=== PATIENT | male | born 1970 | race Caucasian/White ===

== ENCOUNTER 2017-02-13 23:21 | Inpatient (IN) ==
[2017-02-13] MEDS ORDERED: Ketorolac 15 MG/ML VIAL IVP ONE (23:50)
[2017-02-13] MEDS ORDERED: *HR* HYDROmorphone (PF) 1 MG/ML SYRINGE IVP ONE (23:50)
[2017-02-13] MEDS ORDERED: Ondansetron 4 MG/2 ML VIAL IVP ONE (23:51)
[2017-02-13] MEDS ORDERED: 0.9 % Sodium Chloride 500 ML IVC ONE (23:51)
[2017-02-14 00:30] LABS: Bilirubin,Urine Small (Negative); Blood,Urine Large (Negative); Clarity,Urine Cloudy (Clear); Color,Urine Yellow (Yellow); Glucose,Urine (UA) Normal (Normal); Ketones,Urine Trace mg/dL (Negative); Leukocyte Esterase,Urine Moderate (Negative); Nitrite,Urine Negative (Negative); Protein,Urine 100 mg/dL (Neg-Trace); Specific Gravity,Urine > 1.030 (1.010-1.025); Urobilinogen,Urine Normal (Normal)
[2017-02-14 00:32] LABS: Bacteria,Urine None Seen per hpf (None-Few); Hyaline Casts,Urine Moderate per lpf (None-Few); RBC,Urine TNTC per hpf (0-3); Squamous Epithelial Cell,Urine Many per lpf (None-Few); WBC,Urine 50-100 per hpf (0-3)
--- NOTE | 2017-02-14 00:53 | Emergency Department Note ---
Disposition Clinical Impression: Renal calculus, right UTI (urinary tract infection) Qualifiers: Urinary tract infection type: acute cystitis Hematuria presence: with hematuria Qualified Code(s): N30.01 - Acute cystitis with hematuria Disposition: Admitted As Inpatient Condition: Good [facility]: [facility] Care Provider[facility] - Forms: Work/School Release, ED Satisfaction Letter Time of Disposition: 03:58 General Adult HPI - General Chief complaint: ED Abdominal Pain Stated complaint: right abdominal into right flank/hx kidney stones Time Seen by Provider: 02/13/17 23:47 Source: patient Limitations: no limitations Nursing Notes Reviewed: Yes Vital Signs Reviewed: Yes - History of Present Illness HPI Narrative: Two-day history of right flank pain. He does have a history of renal stones. States this feels like that. Denies any hematuria or trouble urinating. States the pain started in his right back radiates down to his right groin. It is sharp in nature. There are no alleviating or provoking factors. Pain Scale: 3 - Related Data Home Medications Medication Instructions Recorded Confirmed Cyclobenzaprine HCl [Amrix] 15 mg PO BID 12/15/15 09/21/16 Meloxicam [Mobic] 7.5 mg PO DAILY 12/15/15 09/21/16 Methadone 10 mg PO QAM 12/15/15 09/21/16 Methadone [Methadone] 5 mg PO HS 12/15/15 09/21/16 Paroxetine HCl [Paroxetine] PO DAILY 09/21/16 Previous Rx's Medication Instructions Recorded Tamsulosin HCl [Flomax] 0.4 mg PO DAILY #15 cap.er.24h 09/21/16 Allergies Allergy/AdvReac Type Severity Reaction Status Date / Time naproxen [From Naprosyn] Allergy Vomiting Verified 02/13/17 23:22 blood thinner Allergy Anaphylaxis Uncoded 02/13/17 23:22 All systems ED: reviewed and negative except as stated. Constitutional: Denies: fever, chills ENT ED: Denies: congestion Cardiovascular: Denies: chest pain, palpitations, syncope Respiratory: Denies: cough, dyspnea, wheezes Gastrointestinal: Reports: abdominal pain (Right groin). Denies: nausea, vomiting, diarrhea, hematemesis, melena, hematochezia Genitourinary: Denies: urgency, dysuria, frequency, hematuria Musculoskeletal: Reports: back pain (Right-sided). Denies: neck pain, joint swelling Integumentary: Denies: rash, abrasion, lesions Neurological: Denies: headache, weakness, numbness, paresthesias Past Medical History - Past Medical History Attestation: Yes The following information was validated with the patient. Medical history: Reports: kidney stones Psychiatric history: Reports: anxiety, depression - Social History Smoking Status: Current every day smoker Smokeless Tobacco Status: No Alcohol use: Reports: occasionally Drug use: Reports: none Physical Exam - General Limitations: no limitations General appearance: alert, in no apparent distress - Head Head exam: atraumatic, normocephalic, normal inspection - Eye Eye exam: Present: normal appearance, PERRL, EOMI. Absent: scleral icterus - ENT ENT exam: normal exam, normal oropharynx, mucous membranes moist - Neck Neck exam: Present: normal inspection, full ROM, trachea midline. Absent: tenderness, meningismus - Chest Chest inspection: Present: normal inspection, symmetric chest wall rise. Absent : tenderness - Respiratory Respiratory exam: Present: normal lung sounds bilaterally. Absent: respiratory distress - Cardiovascular Cardiovascular exam: Present: regular rate, normal rhythm, normal heart sounds - Abdominal Exam Abdominal exam: Present: soft, Non-Tender, normal bowel sounds. Absent: tenderness, distention, guarding, rebound, rigidity, organomegaly - Extremities Exam Extremities exam: Present: normal inspection, full ROM, normal capillary refill. Absent: tenderness, pedal edema - Back Exam Back exam: Present: normal inspection, full ROM, CVA tenderness (R). Absent: tenderness, CVA tenderness (L) - Neurological Exam Neurological exam: Present: alert, oriented X3 - Psychiatric Psychiatric exam: Present: normal affect, normal mood - Skin Skin exam: Present: warm, dry, intact, normal color. Absent: rash, cyanosis, diaphoresis, erythema Course Course Narrative: Male patient presenting to the emergency department complaining of right-sided flank pain that radiates around to his groin. He states he does have history of kidney stones and this feels like that. She had one episode of this around 5 :00 last night but it was easily resolved. He states today the pain is been getting excruciatingly worse. He is rocking in bed holding his right side. He does appear to be in pain. He states that he feels like it is moving. It started in his back and now is radiating around to his groin. He denies any trouble urinating or hematuria. He denies any fevers. Denies any nausea vomiting or diarrhea. He denies any trauma. He is mentating appropriately however does appear to be in some distress. Due to the pain. His lung sounds are clear heart tones are normal abdomen is soft and nontender. He has excruciating pain with right CVA tenderness. He has full range of motion of all 4 extremities with no edema. We will get a UA on patient. He states that he has had several stones in his past he did have one that was obstructing. We will provide pain medication. - Reevaluation(s) Reevaluation #1: Patient ambulating through the department. He complains that his pain is coming back would like more pain medication. I feels is reasonable. His urinalysis is back and appears as if he may have a urinary tract infection. We will scan patient's abdomen at this time. Time: 01:53 Reevaluation #2: Pt has a UTI, with several right sided uretal stones and one measuring 7mm with obstruction. We will admit Pt for septic stone and begin antibiotics. Time: 03:52 - Consultations Consultation #1: Spoke with Dr Light. He accepted patient states he will see them in the morning. He is requesting we admitted to the hospitalist. Time: 03:46 Consultation #2: Dr Chacon accepted Pt in stable condition. He is requesting a CBC and BMP. I will order these. Time: 03:47 Vital Signs Temperature 98 F 02/13/17 23:22 Pulse Rate 80 02/13/17 23:22 Respiratory Rate 20 02/13/17 23:22 Blood Pressure 151/99 02/13/17 23:22 O2 Sat by Pulse Oximetry 96 02/13/17 23:22 Temperature 98 F 02/13/17 23:22 Pulse Rate 75 02/14/17 02:51 Respiratory Rate 16 02/14/17 02:51 Blood Pressure 158/111 02/14/17 02:51 O2 Sat by Pulse Oximetry 97 02/14/17 02:51 Oxygen Delivery Oxygen Delivery Room Air Medical Decision Making - Medical Records Medical records reviewed: Yes I reviewed the patient's medical records. - Lab Data Lab results reviewed: Yes I reviewed the patient's lab results. Lab Results 02/14/17 Range/Units 00:05 Urine Color Yellow (Yellow) Urine Clarity Cloudy A (Clear) Urine pH 6.0 (5.0-8.0) pH Units Ur Specific [place] > 1.030 H (1.010-1.025) Urine Protein 100 H (Neg-Trace) mg/dL Urine Glucose (UA) Normal (Normal) mg/dL Urine Ketones Trace H (Negative) mg/dL Urine Blood Large H (Negative) Urine Nitrite Negative (Negative) Urine Bilirubin Small H (Negative) Urine Urobilinogen Normal (Normal) mg/dL Ur Leukocyte Esterase Moderate H (Negative) Urine Microscopic RBC TNTC H (0-3) per hpf Urine Microscopic WBC 50-100 H (0-3) per hpf Ur Squamous Epith Cells Many H (None-Few) per lpf Urine Bacteria None Seen (None-Few) per hpf Hyaline Casts Moderate H (None-Few) per lpf Ur Culture Indicated? YES A (NO) - Radiology Data Radiology results reviewed: Yes I reviewed the patient's radiology results. Abdomen/Pelvis CT 02/14/17 01:48 IMPRESSION: Moderate to severe right hydronephrosis and hydroureter with a cluster of obstructing calculi seen in the distal right ureter, measuring up to 7 mm. Additional bilateral renal calculi. No left hydronephrosis. D/ / Logan Gil MD / Logan Gil MD Interpreting Provider: Logan Gil MD Attestation Statement - Attestation Attestation: I examined this patient and my medical decision-making was reviewed with the Resident Physician. I agree with the documented findings, disposition and treatment plan as described except to the extent set forth below. Presentation c/w prior stones. Has passed about 20, has needed one procedure. UA equivocal. CT pending, analgesia provided.
[2017-02-14] MEDS ORDERED: *HR* HYDROmorphone (PF) 1 MG/ML SYRINGE IVP ONE (01:44)
[2017-02-14] MEDS ORDERED: *HR* HYDROmorphone 2 MG/ML SYRINGE IVP STA (02:55)
[2017-02-14] MEDS ORDERED: Naloxone 0.4 MG/ML INJ IVP PRN ×2 (04:20→13:40)
[2017-02-14] MEDS ORDERED: *HR* Morphine 2 MG/ML SYRINGE IVP PRN ×3 (04:20→13:40)
[2017-02-14] MEDS ORDERED: *HR* OxyCODONE Immed Rel 5 MG TABLET PO PRN ×2 (04:20→13:40)
[2017-02-14] MEDS ORDERED: Acetaminophen 325 MG TABLET PO PRN ×2 (04:20→13:40)
[2017-02-14 04:50] LABS: Basophils # 0.1 K/mcL (0.0-0.2); Basophils % 0.5 %; Eosinophils # 0.1 K/mcL (0.0-0.6); Eosinophils % 0.9 %; Hematocrit 46.1 % (37.5-50.1); Immature Granulocytes % 0.5 % (0-4); Lymphocytes # 1.7 K/mcL (0.6-4.6); Lymphocytes % 12.9 %; Mean Corpuscular HGB Conc 32.5 g/dL (31.6-35.5); Mean Corpuscular Hemoglobin 28.7 pg (28.0-33.3); Mean Corpuscular Volume 88.1 fL (83.0-100.0); Mean Platelet Volume 8.8 fL (9.4-12.4); Monocytes # 1.2 K/mcL (0.0-1.3); Monocytes % 9.3 %; Platelet Count 265 K/mcL (140-400); Red Blood Count 5.23 M/mcL (4.19-5.50); Red Cell Distribution Width 13.2 % (11.5-14.5); Segmented Neutrophils % 75.9 %
[2017-02-14 05:03] LABS: BUN/Creatinine Ratio 18 (6-26); Blood Urea Nitrogen 19 mg/dL (8-26); Calcium 10.1 mg/dL (8.6-10.8); Carbon Dioxide 28 mEq/L (19-29); Chloride 104 mEq/L (98-109); Glucose 113 mg/dL (70-99); Osmolality,Calculated 291 (280-300); Potassium 4.2 mEq/L (3.5-4.5); Sodium 139 mEq/L (136-145); eGFR For African Americans > 60 (> 60); eGFR For Non-African Americans > 60 (> 60)
--- NOTE | 2017-02-14 05:57 | Internal Med History&Physical ---
Date of Encounter: 02/14/17 Time of Encounter: 03:00 Assessment and Plan (1) Ureteral stone Current visit: Yes Status: Acute 7mm ureteral stone. - We will give patient hydration, pain medication. - Flomax 0.4 mg by mouth daily. - Urology consult (2) DVT prophylaxis Current visit: Yes Status: Acute EPCD. Patient is allergic to heparin. (3) UTI (urinary tract infection) Current visit: Yes Status: Acute Continue Rocephin IV. Follow-up urine culture. Qualifiers: Urinary tract infection type: acute cystitis Hematuria presence: with hematuria Qualified Code(s): N30.01 - Acute cystitis with hematuria (4) Tobacco abuse Current visit: Yes Status: Acute Smoking cessation education done. Patient said he does not need nicotine patch. (5) Morbid obesity Current visit: Yes Status: Acute Needed lifestyle modification Qualifiers: Obesity type: due to excess calories Qualified Code(s): E66.01 - Morbid ( severe) obesity due to excess calories Internal Medicine - H&P: HPI Chief complaint: Right flank pain Admitted From: Home Plans for Post Hospital Care: Home History of present illness: Mr. Nolen is a 46 year old male with history of kidney stone present to ER for right flank pain for 1 day. Patient said pain started about 4:30 PM yesterday afternoon, located on the right flank, no radiation. Patient has no fever. Patient has nausea, and vomited once. The vomiting is stomach content, no blood. Patient denies dysuria, increased frequency, or any urgent with urination. In emergency room, CT of abdomen shows right sided ureteral stone. Urology was counseled by emergency doctor. Patient was admitted for observation. CODE STATUS was discussed with patient. Full code. Past Med Surg Social Fam HX - Past Medical History Medical history: kidney stones Psychiatric history: anxiety, depression - Social History Smoking Status: Current every day smoker Packs per day: 1 Smokeless Tobacco Status: No Alcohol use: occasionally Drug use: none - Family History Maternal Grandfather Hx Family Cardiac Disorders: No Hx Family Respiratory Disorders: No Hx Family Cancer: Yes (Colon) Hx Family GI Disorders: No Hx Family Genitourinary Disorders: No Hx Family Endocrine Disorder: No Hx Family Musculoskeletal Disorders: No Hx Family Neuromuscular Disorders: No Hx Family Neurologic Disorders: No Hx Family HEENT Disorders: No Hx Family Autoimmune Disorders: No Hx Family Reproductive Disorders: No Hx Family Psychosocial Disorders: Yes (Alzheimers) Hx Family Medical Disorders: No Internal Medicine - H&P: Meds Cyclobenzaprine HCl [Amrix] 15 mg PO BID 12/15/15 [History] Meloxicam [Mobic] 7.5 mg PO DAILY 12/15/15 [History] Methadone 10 mg PO QAM 12/15/15 [History] Methadone [Methadone] 5 mg PO HS 12/15/15 [History] Paroxetine HCl [Paroxetine] 40 mg PO DAILY 09/21/16 [History] Allergies naproxen [From Naprosyn] Allergy (Verified 02/13/17 23:22) Vomiting blood thinner Allergy (Uncoded 02/13/17 23:22) Anaphylaxis All Systems PM: A 10-system review of systems was performed and is negative for pertinent findings except as documented above in the HPI. - Constitutional Vitals: Temp Pulse Resp BP Pulse Ox 98 F 75 16 135/97 97 02/13/17 23:22 02/14/17 02:51 02/14/17 04:15 02/14/17 04:15 02/14/17 02:51 General appearance: Present: A&O X 3, morbidly obese, no acute distress, answers questions appropriately - Head Head exam: Present: atraumatic, normocephalic - Eye Eye exam: Present: PERRL, conjuntiva pink, sclera anicteric Pupils: Present: PERRL - Neck Neck exam general surgery: Present: supple, trachea midline. Absent: lymphadenopathy - Respiratory Respiratory exam: Present: CTAB. Absent: accessory muscle use, rales, rhonchi, wheezes - Cardiovascular Cardiovascular exam: Present: RRR, +S1, +S2. Absent: diastolic murmur, gallop, rubs, systolic murmur - GI/Abdominal GI/Abdominal exam: Present: normal bowel sounds, soft, tenderness (CVAT on right side.), no peritoneal signs. Absent: distended - Extremities Exam Extremities exam: Present: warm, radial pulses palpable and symetrical. Absent : calf tenderness, cyanotic, pedal edema - Neurological Exam Neurological exam: Present: CN II-XII intact, oriented X3, no focal deficits. Absent: pronater drift, facial droop, speech deficit - Skin Skin exam: Present: dry, intact Internal Med - H&P Results - Labs CBC & Chem 7: 02/14/17 04:43 02/14/17 04:43 Labs: Short CBC 02/14/17 Range/Units 04:43 WBC 13.1 H (4.3-11.1) K/mcL Hgb 15.0 (12.9-16.9) g/dL Hct 46.1 (37.5-50.1) % Plt Count 265 (140-400) K/mcL Neutrophils # 10.0 H (1.6-8.9) K/mcL BMP 02/14/17 04:43 Sodium 139 Potassium 4.2 Chloride 104 Carbon Dioxide 28 BUN 19 Creatinine 1.04 Glucose 113 H Calcium 10.1
[2017-02-14] MEDS ORDERED: *HR* Heparin 5,000 UNIT/ML VIAL SQ SCH (06:00)
--- NOTE | 2017-02-14 07:41 | Urology - Consult Note ---
Date of Encounter: 02/14/17 Time of Encounter: 07:39 - Assessment and Plan (1) UTI (urinary tract infection) Current Visit: Yes Status: Acute Assessment and plan: His urine appears to have white and red blood cells, but he doesn't have the appearance of uti with sepsis. He has received antibiotics. We will await the results of the culture. Qualifiers: Urinary tract infection type: acute cystitis Hematuria presence: with hematuria Qualified Code(s): N30.01 - Acute cystitis with hematuria (2) Ureteral stone Current Visit: Yes Status: Acute Assessment and plan: 46 year old man with a history of right ureteral stone. I recommend proceeding with a right ureteroscopy, laser lithotripsy, and stent placement. I informed him of the risks of the surgery which include but are not limited to bleeding, infection, injury to other structures, need for further procedures, stent irritation, incomplete treatment, need for open repair, need for nephrostomy tube, and the risk of anesthesia. He is willing to proceed. Urology CN:HPI Consult date: 02/14/17 Reason for consult Urology: Other (Right ureteral stone) Requesting physician: Christina Chacon History of present illness: 46 year old man presents with right flank pain. The pain has been going on for a couple days. It was severe. He reports having a history of stones and usually passes them. He was seen in the ER and was noted to have concern for infected urine. He was admitted to the hospitalist service. He says his pain is still present. Nausea has improved. He denies any fevers or chills. Past Med Surg Social Fam HX - Past Medical History Medical history: kidney stones Psychiatric history: anxiety, depression - Social History Smoking Status: Current every day smoker Packs per day: 1 Smokeless Tobacco Status: No Alcohol use: occasionally Drug use: none - Family History Maternal Grandfather Hx Family Cardiac Disorders: No Hx Family Respiratory Disorders: No Hx Family Cancer: Yes (Colon) Hx Family GI Disorders: No Hx Family Genitourinary Disorders: No Hx Family Endocrine Disorder: No Hx Family Musculoskeletal Disorders: No Hx Family Neuromuscular Disorders: No Hx Family Neurologic Disorders: No Hx Family HEENT Disorders: No Hx Family Autoimmune Disorders: No Hx Family Reproductive Disorders: No Hx Family Psychosocial Disorders: Yes (Alzheimers) Hx Family Medical Disorders: No Medications and Allergies Cyclobenzaprine HCl [Amrix] 15 mg PO BID 12/15/15 [History] Meloxicam [Mobic] 7.5 mg PO DAILY 12/15/15 [History] Methadone 10 mg PO QAM 12/15/15 [History] Methadone [Methadone] 5 mg PO HS 12/15/15 [History] Paroxetine HCl [Paroxetine] 40 mg PO DAILY 09/21/16 [History] Allergies naproxen [From Naprosyn] Allergy (Verified 02/13/17 23:22) Vomiting blood thinner Allergy (Uncoded 02/13/17 23:22) Anaphylaxis Review of Systems - Constitutional no chills, no fever(s) - EENT Nose, mouth and throat: no dizziness - Cardiovascular no chest pain - Respiratory no dyspnea - Gastrointestinal no nausea, no vomiting - Genitourinary flank pain, no hematuria - Musculoskeletal no back pain - Integumentary no erythema, no rash - Neurological no weakness - Psychiatric no suicidal ideation - Hematologic/Lymphatic no easy bleeding - Allergic/Immunologic no wheezing Exam Initial Vital Signs Temp Pulse Resp BP Pulse Ox 98 F 80 20 151/99 96 02/13/17 23:22 02/13/17 23:22 02/13/17 23:22 02/13/17 23:22 02/13/17 23:22 - General physical appearance Present: well developed, well nourished, no distress - Eyes Absent: icteric - ENT Present: normal nares - Neck Present: trachea midline - Respiratory Present: normal respiratory effort - Cardiovascular Cardiovascular exam IM: RRR - Abdomen Abdomen: Present: soft Urology Results - Labs 02/14/17 04:43 02/14/17 04:43 Abnormal lab results WBC 13.1 K/mcL (4.3-11.1) H 02/14/17 04:43 MPV 8.8 fL (9.4-12.4) L 02/14/17 04:43 Neutrophils # 10.0 K/mcL (1.6-8.9) H 02/14/17 04:43 Glucose 113 mg/dL (70-99) H 02/14/17 04:43 Urine Clarity Cloudy (Clear) A 02/14/17 00:05 Ur Specific [place] > 1.030 (1.010-1.025) H 02/14/17 00:05 Urine Protein 100 mg/dL (Neg-Trace) H 02/14/17 00:05 Urine Ketones Trace mg/dL (Negative) H 02/14/17 00:05 Urine Blood Large (Negative) H 02/14/17 00:05 Urine Bilirubin Small (Negative) H 02/14/17 00:05 Ur Leukocyte Esterase Moderate (Negative) H 02/14/17 00:05 Urine Microscopic RBC TNTC per hpf (0-3) H 02/14/17 00:05 Urine Microscopic WBC 50-100 per hpf (0-3) H 02/14/17 00:05 Ur Squamous Epith Cells Many per lpf (None-Few) H 02/14/17 00:05 Hyaline Casts Moderate per lpf (None-Few) H 02/14/17 00:05 Ur Culture Indicated? YES (NO) A 02/14/17 00:05 Diabetes panel 02/14/17 Range/Units 04:43 Sodium 139 (136-145) mEq/L Potassium 4.2 (3.5-4.5) mEq/L Chloride 104 (98-109) mEq/L Carbon Dioxide 28 (19-29) mEq/L BUN 19 (8-26) mg/dL Creatinine 1.04 (0.72-1.25) mg/dL Glucose 113 H (70-99) mg/dL Calcium 10.1 (8.6-10.8) mg/dL Calcium panel 02/14/17 Range/Units 04:43 Calcium 10.1 (8.6-10.8) mg/dL Pituitary panel 02/14/17 Range/Units 04:43 Sodium 139 (136-145) mEq/L Potassium 4.2 (3.5-4.5) mEq/L Chloride 104 (98-109) mEq/L Carbon Dioxide 28 (19-29) mEq/L BUN 19 (8-26) mg/dL Creatinine 1.04 (0.72-1.25) mg/dL Glucose 113 H (70-99) mg/dL Calcium 10.1 (8.6-10.8) mg/dL Adrenal panel 02/14/17 Range/Units 04:43 Sodium 139 (136-145) mEq/L Potassium 4.2 (3.5-4.5) mEq/L Chloride 104 (98-109) mEq/L Carbon Dioxide 28 (19-29) mEq/L BUN 19 (8-26) mg/dL Creatinine 1.04 (0.72-1.25) mg/dL Glucose 113 H (70-99) mg/dL Calcium 10.1 (8.6-10.8) mg/dL All other labs normal. - Imaging CT scan - abdomen: report reviewed, image reviewed CT scan - pelvis: report reviewed, image reviewed Consult Discharge Plan - Plan [facility]errals: [facility] [Primary Care Provider[facility] -
[2017-02-14] MEDS ORDERED: *HR* Methadone 10 MG TABLET PO SCH (09:00)
[2017-02-14] MEDS ORDERED: *HR* Promethazine 25 MG/ML VIAL IVP PRN ×3 (10:14→13:40)
[2017-02-14] MEDS ORDERED: Ondansetron 4 MG/2 ML VIAL IVP PRN ×2 (10:14→13:40)
--- NOTE | 2017-02-14 12:04 | Anesthesia Evaluation PreOp ---
Date of Encounter: 02/14/17 Time of Encounter: 12:02 - Past History Planned Operation: Right ureteroscopy Cardiac History: Denies any Significant Hx Pulmonary History: Smoker, Pack/yr (1 ppd) HR RECEPTIONIST History: Other (Anxiety/Depression) Other Medical History: Renal (Stones), Other (Morbid obesity) Anesthesia History: Past Anesthesia (Left shoulder, GB, Renal stone), Problems ( Difficult intubation) Alcohol Use: occasionally Drug use: none Medications and Allergies Cyclobenzaprine HCl [Amrix] 15 mg PO BID 12/15/15 [History] Meloxicam [Mobic] 7.5 mg PO DAILY 12/15/15 [History] Methadone 10 mg PO QAM 12/15/15 [History] Methadone [Methadone] 5 mg PO HS 12/15/15 [History] Paroxetine HCl [Paroxetine] 40 mg PO DAILY 09/21/16 [History] Ibuprofen [Motrin] 200 - 400 mg PO Q6HR PRN 02/14/17 [History] Allergies naproxen [From Naprosyn] Allergy (Verified 02/13/17 23:22) Vomiting blood thinner Allergy (Uncoded 02/13/17 23:22) Anaphylaxis - Meds/Allergy Pre-op Review Medications Reviewed: Yes Allergies Reviewed: Yes Beta Blockers on Current Med List: No Anesthesia Results - Labs 02/14/17 04:43 02/14/17 04:43 Anesthesia Exam O2 Sat Height 1.96 m Height 1.93 m Weight 156.518 kg Weight 159.302 kg O2 Sat by Pulse Oximetry 95 O2 Sat by Pulse Oximetry 96 O2 Sat by Pulse Oximetry 96 O2 Sat by Pulse Oximetry 97 O2 Sat by Pulse Oximetry 93 O2 Sat by Pulse Oximetry 97 O2 Sat by Pulse Oximetry 96 Vital Signs Temp Pulse Resp BP Pulse Ox 98 F 80 20 151/99 96 02/13/17 23:22 02/13/17 23:22 02/13/17 23:22 02/13/17 23:22 02/13/17 23:22 Vital Signs/O2 Sat, Most Current Temp Pulse Resp BP Pulse Ox 97.9 F 73 16 133/83 95 02/14/17 11:31 02/14/17 11:31 02/14/17 11:31 02/14/17 11:31 02/14/17 11:31 Height: 6'5'' Weight: 345# NPO (# of Hours): > 8 hrs Pain Scale: 0 Pain Scale Used: Numeric (1 - 10) - HEENT Pupil (Motor): Pupils equal, EOMI Mallampati: II Teeth: Missing, Poor dentition Oral Opening: Greater than 3 - HR RECEPTIONIST LOC: Oriented HR RECEPTIONIST Motor: Normal RUE, Normal LUE, Normal RLE, Normal LLE, Normal Face HR RECEPTIONIST Sensory: Normal: RUE, LUE, RLE, LLE, Face - Cardiac Rhythm: Regular Murmur: None JVD: No Carotid Bruit: No - Pulmonary Breath Sounds: bilateral Clear Respiratory Effort: Symmetrical Anesthesia Assess/Plan ASA Score: 3 Modified [place] Scale for Level of Consciousness: Cooperative, oriented, and tranquil Anesthetic Plan: General Autologous Blood: Yes Monitoring Plan: Standard Monitors Recovery Plan: PACU
[2017-02-14] MEDS ORDERED: *HR* Propofol 200 MG/20 ML VIAL IVP ONE ×3 (12:08→12:55)
[2017-02-14] MEDS ORDERED: *HR* FentaNYL (PF) 100 MCG/2 ML VIAL ONE (12:08)
[2017-02-14] MEDS ORDERED: *HR* Midazolam HCl 2 MG/2 ML VIAL ONE (12:08)
[2017-02-14] MEDS ORDERED: Lidocaine -MPF 2% 2 ML VIAL ONE (12:09)
[2017-02-14] MEDS ORDERED: *HR* Succinylcholine 200 MG/10 ML VIAL IVP ONE (12:29)
[2017-02-14] MEDS ORDERED: Ondansetron 4 MG/2 ML VIAL ONE (12:45)
[2017-02-14] MEDS ORDERED: Dexamethasone 4 MG/ML VIAL ONE (12:45)
[2017-02-14] MEDS ORDERED: Ondansetron 4 MG/2 ML VIAL IVP ONE (12:49)
[2017-02-14] MEDS ORDERED: *HR* HYDROmorphone (PF) 1 MG/ML SYRINGE IVP PRN (12:49)
[2017-02-14] MEDS ORDERED: *HR* Phenylephrine 10 MG/ML VIAL ONE (13:05)
--- NOTE | 2017-02-14 13:17 | Operative Note ---
Date of procedure: 02/14/17 Pre-op diagnosis: Right ureteral stone Post-op diagnosis: same Procedure: Right ureteroscopy, laser lithotripsy, and stent placement. Implants: 6 Portuguese x 26cm JJ stent. Complications: none Anesthesia: JPA Surgeon: Jr Light Estimated blood loss (cc): 1 Specimen: right ureteral stone Condition: stable Disposition: PACU Procedure in Detail: Indications: Mr. Nolen is a 46-year-old gentleman who has a history of right flank pain. A CT scan showed two stones in the distal right ureter. He elected to undergo a right ureteroscopy, laser lithotripsy, and stent placement. He is aware of the risks of the procedure including but not limited to bleeding, infection, injury to other structures, need for further procedures, stent irritation, and the risk of anesthesia. He is willing to proceed. Procedure: After informed consent was obtained the patient was brought back to the operating room and placed in supine position. A time out was performed. General anesthesia was administered and an endotracheal tube was placed. He was then placed in the lithotomy position. He was prepped and draped in the usual sterile fashion. Cystoscopy was performed. The anterior urethra was normal. There was no evidence of bladder tumors. The ureteral orifices were in the normal orthotopic position. The Zip wire was placed in the right ureteral orifice and brought into the kidney under fluoroscopic guidance. The ureter was gently dilated with the 8/10 Portuguese ureteral dilator. I then advanced the semirigid ureteroscope into the ureter. One of the stones was basket extracted. I then inserted the 365 micron fiber. The other stones were broken up using the laser fiber. The stone fragments were basket extracted. A 6 Portuguese by 26cm JJ stent was then placed with good curl seen in the kidney and the bladder. The dangle string left intact. The string was attached to the penis using a Tegaderm. The bladder was drained. The patient was then awakened from general anesthesia and brought to recovery room in good condition. All sponge, needle, and instrument counts were correct.
--- NOTE | 2017-02-14 14:07 | Anesthesia Evaluation Post Op ---
Date of Encounter: 02/14/17 Time of Encounter: 14:06 - Vital Signs Vital Signs: vss - Lungs Lungs: Clear Ascult./Percussion - Airway Airway: Non-obstructed - Cardiovascular Baseline Rhythm - Mental Status Mental Status: Asleep with brisk response to light stimulation - Pain Pain Scale used: Dustin (Faces) - Nausea Vomiting Nausea Vomiting: Not Present - Hydration Hydration: Ice chips - Discharge PostOp Status: Transfer Patient to floor (recommended Sleep Study.)
--- NOTE | 2017-02-14 17:38 | Discharge Summary ---
Date of Encounter: 02/14/17 Time of Encounter: 17:00 - Discharge Diagnosis (1) Ureteral stone Priority: Primary Status: Acute Comments: Status post right ureteroscopy, laser lithotripsy, and stent placement per Dr. Light (2) UTI (urinary tract infection) Priority: Primary Status: Ruled-out Comments: Urine culture negative Qualifiers: Urinary tract infection type: acute cystitis Hematuria presence: with hematuria Qualified Code(s): N30.01 - Acute cystitis with hematuria (3) DVT prophylaxis Priority: Primary Status: Acute Comments: Observation patient (4) Tobacco abuse Priority: Secondary Status: Chronic Comments: Declined counseling (5) Morbid obesity Priority: Secondary Status: Chronic Qualifiers: Obesity type: due to excess calories Qualified Code(s): E66.01 - Morbid ( severe) obesity due to excess calories - Discharge Medications Prescriptions: Tamsulosin [Flomax] 0.4 mg PO HS #30 capsule Home Medications: Cyclobenzaprine HCl [Amrix] 15 mg PO BID 12/15/15 [History] Meloxicam [Mobic] 7.5 mg PO DAILY 12/15/15 [History] Methadone 5 mg PO HS 12/15/15 [History] Methadone 10 mg PO QAM 12/15/15 [History] Paroxetine HCl [Paroxetine] 40 mg PO DAILY 09/21/16 [History] Ibuprofen [Motrin] 200 - 400 mg PO Q6HR PRN 02/14/17 [History] Tamsulosin [Flomax] 0.4 mg PO HS #30 capsule 02/14/17 [Rx] Allergies/Adverse Reactions: Allergies naproxen [From Naprosyn] Allergy (Verified 02/13/17 23:22) Vomiting blood thinner Allergy (Uncoded 02/13/17 23:22) Anaphylaxis Date of admission: 02/14/17 11:53 Primary care physician: PCP [place] Discharging clinician: Maria C Ba Anticipated date of discharge: 02/14/17 - Patient Status Disposition: Home, Self-Care Condition: Good Functional capacity at discharge: independent ambulation Overall status at discharge: patient is back to baseline - Discharge Instructions Follow Up With: [place],PCP [Primary Care Provider] - Jr Light MD [Partnered Physician] - Additional Instructions: Follow-up with primary care provider within one to 2 weeks. Follow up with urology within 1 week - Diet and Activity Activity: increase activity as tolerated Diet: regular diet Hospital course: Mr. Nolen is a 46 year old male with past medical history of kidney stones, anxiety/depression, tobacco abuse, currently on methadone. Patient presented to the emergency department chief complaint of right flank pain 1 day. Pain did not radiate. He was afebrile. He did endorse nausea and vomiting. He denied dysuria, increased frequency, or urgency. Abdominal CT emergency department revealing right-sided obstructed ureteral stone. Urology was brought on board and the patient was admitted to the hospitalist service for further evaluation and management. Urology performed a right ureteroscopy, laser lithotripsy, and stent placement per urologist Dr. Light. The patient tolerated this well. He was also started on Flomax. Throughout this admission, patient declined pain or nausea medication. He was initially started on ceftriaxone for an abnormal urinalysis however urine culture was negative so no antibiotics were indicated. He was discharged home in stable condition with close outpatient follow-up recommended. ITS Impressions Abdomen/Pelvis CT 02/14/17 01:48 IMPRESSION: Moderate to severe right hydronephrosis and hydroureter with a cluster of obstructing calculi seen in the distal right ureter, measuring up to 7 mm. Additional bilateral renal calculi. No left hydronephrosis. D/ / 02/14/2017 07:30:51 Logan Gil MD / yoli Interpreting Provider: Logan Gil MD Fluoroscopy 02/14/17 12:40 IMPRESSION: Intraprocedural fluoroscopic spot images as above. See separate procedure report for more information. D/ / Franki Acosta MD / Franki Acosta MD Interpreting Provider: Franki Acosta MD X-Ray 02/14/17 12:40 IMPRESSION: Intraprocedural fluoroscopic spot images as above. See separate procedure report for more information. D/ / Franki Acosta MD / Franki Acosta MD Interpreting Provider: Franki Acosta MD - Time Spent with Patient Total time spent providing and/or coordinating discharge services: - Constitutional Vitals: Temp Pulse Resp BP Pulse Ox 98.3 F 95 18 129/76 91 02/14/17 16:35 02/14/17 16:35 02/14/17 16:35 02/14/17 16:35 02/14/17 16:35 General appearance: Present: A&O X 3, morbidly obese, pleasant, no acute distress, answers questions appropriately - Head Head exam: Present: atraumatic, normocephalic - Eye Eye exam: Present: PERRL, conjuntiva pink, sclera anicteric Pupils: Present: PERRL - Neck Neck exam general surgery: Present: supple, trachea midline. Absent: lymphadenopathy - Respiratory Respiratory exam: Present: CTAB. Absent: accessory muscle use, rales, respiratory distress, rhonchi, wheezes - Cardiovascular Cardiovascular exam: Present: RRR, +S1, +S2. Absent: diastolic murmur, gallop, rubs, systolic murmur - GI/Abdominal GI/Abdominal exam: Present: normal bowel sounds, soft, no peritoneal signs. Absent: distended, tenderness - Extremities Exam Extremities exam: Present: warm, radial pulses palpable and symetrical. Absent : calf tenderness, cyanotic, pedal edema - Neurological Exam Neurological exam: Present: alert, CN II-XII intact, normal gait, oriented X3, no focal deficits, strengths equal and symetr throughout. Absent: pronater drift, facial droop, speech deficit - Skin Skin exam: Present: dry, intact, normal color, warm
[2017-02-14 18:03] VITALS: BP 113/71
[2017-02-14] MEDS ORDERED: *HR* Methadone 5 MG TABLET PO SCH ×2 (21:00)
[2017-02-15] MEDS ORDERED: *HR* Methadone 10 MG TABLET PO SCH (09:00)
== END 2017-02-14 18:32 | disposition home or self-care (01) | DRG 654 ==
LOC: EMEROO 23:21 → 3BNU 23:21
PROVIDERS: ADMIT Nurse Practitioner Family; ATTEND Nurse Practitioner Family

== ENCOUNTER 2018-07-07 08:13 | Observation (INO) ==
[2018-07-07] MEDS ORDERED: *HR* HYDROmorphone 2 MG/ML SYRINGE IVP STA ×2 (08:32→09:55)
[2018-07-07] MEDS ORDERED: Ondansetron 4 MG/2 ML VIAL IVP STA (08:32)
[2018-07-07] MEDS ORDERED: 0.9 % Sodium Chloride 1,000 ML IVC ONE (08:32)
--- NOTE | 2018-07-07 08:36 | Emergency Department Note ---
Disposition Clinical Impression: Kidney stones Disposition: Admitted As Inpatient Condition: Fair Forms: ED Satisfaction Letter, Work/School Release General Adult HPI - General Chief complaint: ED Abdominal Pain Stated complaint: Kidney stones Time Seen by Provider: 07/07/18 08:25 Source: patient Mode of arrival: ambulatory Limitations: no limitations Nursing Notes Reviewed: Yes Vital Signs Reviewed: Yes - History of Present Illness HPI Narrative: Patient with a history past medical history of significant kidney stones. Patient has seen multiple specialists without insight into cause. Patient gets treated at the [facility]. Patient states he is off most of his medications which she d escribes as being pain related. Patient typically stays home and takes ibuprofen. Pain started yesterday and was bilateral in nature. Patient states today it is right-sided in nature. Described as a sharp stabbing pain that fluctuates in intensity. Nothing makes better or worse. Associated nausea and decreased appetite with hematuria. Nausea without vomiting. No changes to bowel movements. Mild dysuria. No fever. Pain Scale: 10 - Related Data Home Medications Medication Instructions Recorded Confirmed Ibuprofen [Motrin] 600 mg PO QID PRN 02/14/17 12/18/17 Acetaminophen [Tylenol] 500 mg PO Q6HR PRN 12/18/17 12/18/17 Cyclobenzaprine HCl 10 mg PO HS PRN 12/18/17 12/18/17 Paroxetine HCl [Paxil] 20 mg PO DAILY 12/18/17 12/18/17 Previous Rx's Medication Instructions Recorded Tamsulosin [Flomax] 0.4 mg PO DAILY #30 capsule 12/07/17 HYDROcodone/Acet 5/325 mg [Shiner 2 tab PO Q4H PRN 2 Days #12 tablet 12/18/17 5-325 mg] Morphine Immed Rel [Morphine 30 mg PO Q8HR 2 Days #10 tablet 04/05/18 Sulfate] Ondansetron ODT [Zofran ODT] 4 mg SL Q6HR #10 tab.rapdis 04/05/18 Allergies Allergy/AdvReac Type Severity Reaction Status Date / Time Enoxaparin [From Lovenox] Allergy Difficulty Verified 07/07/18 08:24 Breathing heparin Allergy Swelling Verified 07/07/18 08:24 of Lip/Tongue/Throat Warfarin Allergy Difficulty Verified 07/07/18 08:24 Breathing gabapentin AdvReac Agitated Verified 07/07/18 08:24 naproxen [From Naprosyn] AdvReac Vomiting Verified 07/07/18 08:24 All systems ED: reviewed and negative except as stated. Review of Systems: As Per HPI Constitutional: Denies: fever, chills ENT ED: Denies: congestion Cardiovascular: Denies: chest pain, dyspnea on exertion Respiratory: Denies: cough, dyspnea, wheezes Gastrointestinal: Reports: abdominal pain, nausea. Denies: vomiting, diarrhea, constipation Genitourinary: Reports: urgency, dysuria, hematuria. Denies: frequency, testicular pain Musculoskeletal: Reports: back pain Integumentary: Denies: rash, abrasion, lesions Past Medical History - Past Medical History Medical history: Reports: DVT, kidney stones Surgical history: Reports: cholecystectomy, orthopedic, other Psychiatric history: Reports: anxiety, depression - Social History Smoking Status: Current every day smoker Smokeless Tobacco Status: No Alcohol use: Reports: occasionally Drug use: Reports: none Physical Exam General: Patient in moderate discomfort secondary to right flank pain, otherwise nontoxic appearing. Head: Normocephalic Atraumatic Eyes: No jaundice, PERRL ENT: Airway patent, no stridor Neck: Trachea midline, no limited range of motion Chest: Lungs clear to auscultation bilateral Cardiac: Regular rhythm Abdomen: soft, nontender, nondistended; no guarding, rebound, or tenderness to percussion; right-sided CVA tenderness Musculoskeletal: Ambulated to the room without difficulty Skin: No rash, normal skin tone Neuro: Awake alert and answering all questions appropriately; No focal deficit Course Course Narrative: Patient with a history of significant kidney stones. Patient last kidney stone was approximately 2 weeks ago which passed on its own. Patient has not had any recent CAT scans or blood work. Does take a significant amount of ibuprofen at home secondary to chronic pain with kidney stones. The patient has required extraction of stones in the past. Due to the abnormal presentation, bilateral flank pain, which she had not experienced in the past as well as no recent blood work or recent previous imaging, CT scan will be performed. Kidney function will be evaluated. Urinalysis sent for investigation of possible infection. Symptom management. - Reevaluation(s) Reevaluation #1: Patient symptoms did not initially improve with 1 mg of Dilaudid. Another milligram was given. Patient had significant improvement in pain. Reevaluation #2: Patient understands recommendation to stay. Patient is requesting nicotine patch. - Consultations Consultation #1: Discussed with urology. Patient will undergo urologic procedure likely later today. Requests admission to the hospitalist with urology consult. Consultation #2: Discussed with hospitalist, Dr. Laura, patient excepted for admission. Vital Signs Temperature 97.6 F 07/07/18 08:20 Pulse Rate 104 07/07/18 08:20 Respiratory Rate 20 07/07/18 08:20 Blood Pressure 151/99 07/07/18 08:20 O2 Sat by Pulse Oximetry 95 07/07/18 08:20 Temperature 97.6 F 07/07/18 08:27 Pulse Rate 104 07/07/18 08:27 Respiratory Rate 20 07/07/18 08:27 Blood Pressure 151/99 07/07/18 08:27 O2 Sat by Pulse Oximetry 95 07/07/18 08:27 Oxygen Delivery Oxygen Delivery Room Air Medical Decision Making - Medical Records Medical records reviewed: Yes I reviewed the patient's medical records. - Lab Data Lab results reviewed: Yes I reviewed the patient's lab results. Result diagrams: 07/07/18 08:33 Lab Results 07/07/18 07/07/18 Range/Units 08:33 08:34 Sodium 138 (136-145) mEq/L Potassium 4.5 (3.5-5.1) mEq/L Chloride 107 (98-107) mEq/L Carbon Dioxide 25 (23-29) mEq/L BUN 18 (6-20) mg/dL Creatinine 1.10 (0.70-1.30) mg/dL Est GFR ( Amer) > 60 (> 60) Est GFR (Non-Af Amer) > 60 (> 60) BUN/Creatinine Ratio 16 (6-26) Glucose 112 H (70-105) mg/dL Calculated Osmolality 289 (280-300) Calcium 10.9 H (8.6-10.3) mg/dL Urine Color Yellow (Yellow) Urine Clarity Clear (Clear) Urine pH 6.5 (5.0-8.0) pH Units Ur Specific [place] 1.012 (1.010-1.025) Urine Protein 30 H (Neg-Trace) mg/dL Urine Glucose (UA) Normal (Normal) mg/dL Urine Ketones Negative (Negative) mg/dL Urine Blood Large H (Negative) Urine Nitrite Negative (Negative) Urine Bilirubin Negative (Negative) Urine Urobilinogen Normal (Normal) mg/dL Ur Leukocyte Esterase Moderate H (Negative) Urine Microscopic RBC 50-100 H (0-3) per hpf Urine Microscopic WBC 5-15 H (0-3) per hpf Ur Squamous Epith Cells Many H (None-Few) per lpf Urine Bacteria None Seen (None-Few) per hpf Hyaline Casts None Seen (None-Few) per lpf Ur Culture Indicated? NO. A (NO) - Radiology Data Radiology results reviewed: Yes I reviewed the patient's radiology results.
[2018-07-07 08:50] LABS: Bilirubin,Urine Negative (Negative); Blood,Urine Large (Negative); Clarity,Urine Clear (Clear); Color,Urine Yellow (Yellow); Glucose,Urine (UA) Normal (Normal); Ketones,Urine Negative (Negative); Leukocyte Esterase,Urine Moderate (Negative); Nitrite,Urine Negative (Negative); PH,Urine 6.5 pH Units (5.0-8.0); Protein,Urine 30 mg/dL (Neg-Trace); Specific Gravity,Urine 1.012 (1.010-1.025); Urobilinogen,Urine Normal (Normal)
[2018-07-07 08:53] LABS: Bacteria,Urine None Seen per hpf (None-Few); Hyaline Casts,Urine None Seen per lpf (None-Few); RBC,Urine 50-100 per hpf (0-3); Squamous Epithelial Cell,Urine Many per lpf (None-Few)
[2018-07-07 09:07] LABS: Blood Urea Nitrogen 18 mg/dL (6-20); Carbon Dioxide 25 mEq/L (23-29); Chloride 107 mEq/L (98-107); Potassium 4.5 mEq/L (3.5-5.1); Sodium 138 mEq/L (136-145)
[2018-07-07 09:08] LABS: BUN/Creatinine Ratio 16 (6-26); Calcium 10.9 mg/dL (8.6-10.3); Glucose 112 mg/dL (70-105); Osmolality,Calculated 289 (280-300); eGFR For Non-African Americans > 60 (> 60)
[2018-07-07] MEDS ORDERED: Nicotine 21 MG PATCH.TD24 TD SCH (10:45)
[2018-07-07] MEDS ORDERED: Acetaminophen 325 MG TABLET PO PRN ×2 (11:02→16:55)
[2018-07-07] MEDS ORDERED: Naloxone 0.4 MG/ML INJ IVP PRN ×2 (11:02→16:55)
[2018-07-07] MEDS ORDERED: 0.9 % Sodium Chloride w KCl 20 MEQ/1,000 ML MLS IVC SCH (11:15)
--- NOTE | 2018-07-07 11:27 | Internal Med History&Physical ---
Date of Encounter: 07/07/18 Time of Encounter: 01:45 Internal Medicine - H&P: HPI Chief complaint: Abdominal pain History of present illness: Mr. Nolen is a 48 year old male with a history past medical history of significant kidney stones. who presented with sharp stabbing abdominal pain. associated with nausea , decreased appetite , hematuria and dysuria. No fever. e presents to the ER for abdominal pain. CT reveals bilateral obstructing ureteral stones with bilateral hydronephrosis. The patient is admitted for pain control and further evaluation and management. Past Med Surg Social Fam HX - Past Medical History Medical history: DVT, kidney stones Additional medical history: chronic back pain Psychiatric history: anxiety, depression - Past Surgical History Surgical History: cholecystectomy, orthopedic, other Additional surgical history: Back Surgery. Lithotripsy - Social History Smoking Status: Current every day smoker Smokeless Tobacco Status: No Alcohol use: occasionally Drug use: none - Family History Maternal Grandfather Hx Family Cardiac Disorders: No Hx Family Respiratory Disorders: No Hx Family Cancer: Yes (Colon) Hx Family GI Disorders: No Hx Family Endocrine Disorder: No Hx Family Neuromuscular Disorders: No Hx Family Neurologic Disorders: No Hx Family HEENT Disorders: No Hx Family Autoimmune Disorders: No Internal Medicine - H&P: Meds RX: Ibuprofen [Motrin] 600 mg PO QID PRN 02/14/17 [History] Levofloxacin [Levaquin] 500 mg PO QDPC 6 Days #6 tablet 07/08/18 [Rx] RX: Acetaminophen [Tylenol] 650 mg PO Q6HR PRN tablet 07/08/18 [Rx] Allergy/AdvReac Type Severity Reaction Status Date / Time Enoxaparin [From Lovenox] Allergy Difficulty Verified 07/07/18 08:24 Breathing heparin Allergy Swelling Verified 07/07/18 08:24 of Lip/Tongue/Throat Warfarin Allergy Difficulty Verified 07/07/18 08:24 Breathing gabapentin AdvReac Agitated Verified 07/07/18 08:24 naproxen [From Naprosyn] AdvReac Vomiting Verified 07/07/18 08:24 All Systems PM: A 10-system review of systems was performed and is negative for pertinent findings except as documented above in the HPI. - Constitutional Constitutional: no chills, no fever(s), no night sweats - Cardiovascular Cardiovascular ROS IM: no chest pain, no diaphoresis, no dyspnea, no lightheadedness, no palpitations, no syncope - Respiratory Respiratory: no cough, no dyspnea, no wheezing, no excessive phlegm production - Gastrointestinal Gastrointestinal: abdominal pain, nausea, no diarrhea, no hematemesis, no hematochezia, no melena, no vomiting - Neurological Neurological ROS: no confusion, no convulsions, no focal weakness, no numbness, no tingling, no tremor(s) - Constitutional Vitals: Temp Pulse Resp BP Pulse Ox 97.6 F 104 20 151/99 95 07/07/18 08:27 07/07/18 08:27 07/07/18 08:27 07/07/18 08:27 07/07/18 08:27 General appearance: Present: A&O X 3 Exam: awake - Head Head exam: Present: atraumatic, normocephalic - Neck Neck exam general surgery: Present: supple, trachea midline. Absent: lymph adenopathy - Respiratory Respiratory exam: Present: CTAB. Absent: accessory muscle use, rales, rhonchi, wheezes - Cardiovascular Cardiovascular exam: Present: RRR, +S1, +S2. Absent: diastolic murmur, gallop, rubs, systolic murmur - GI/Abdominal GI/Abdominal exam: Present: normal bowel sounds, soft, no peritoneal signs. Absent: distended, tenderness - Extremities Exam Extremities exam: Present: warm, radial pulses palpable and symmetrical. Absent: calf tenderness, cyanotic, pedal edema Internal Med - H&P Results - Labs CBC & Chem 7: 07/07/18 11:55 07/08/18 05:16 Labs: BMP 07/07/18 08:33 Sodium 138 Potassium 4.5 Chloride 107 Carbon Dioxide 25 BUN 18 Creatinine 1.10 Glucose 112 H Calcium 10.9 H Urine 07/07/18 Range/Units 08:34 Urine Color Yellow (Yellow) Urine Clarity Clear (Clear) Urine pH 6.5 (5.0-8.0) pH Units Ur Specific [place] 1.012 (1.010-1.025) Urine Protein 30 H (Neg-Trace) mg/dL Urine Glucose (UA) Normal (Normal) mg/dL - Impressions ITS Impressions Abdomen/Pelvis CT 07/07/18 00:00 IMPRESSION: 1. Bilateral ureteral calculi, as described above, with associated moderate bilateral hydronephrosis. 2. Bilateral nonobstructing nephrolithiasis. 3. Stable small right renal cyst. 4. Stable left adrenal adenoma. 5. Patient status post cholecystectomy. D/ / 07/07/2018 10:33:10 Jr Rabago MD / Radha Sanz Interpreting Provider: Jr Rabago MD - Assessment and plan (1) Renal calculus, bilateral Status: Acute Assessment and plan: Bilateral hydronephrosis secondary to proximal right ureteral calculus and distal left ureteral calculus. Urology consulted. The patient is scheduled for Urgent urinary diversion in setting (2) Bilateral hydronephrosis Status: Acute Assessment and plan: Bilateral hydronephrosis secondary to proximal right ureteral calculus and di stal left ureteral calculus. Urology consulted. The patient is scheduled for Urgent urinary diversion in setting (3) DVT prophylaxis Status: Acute - Time Spent With Patient Total time spent is greater than 50% in coordination of care (as documented) at patient's floor/unit and/or counseling patient:
[2018-07-07 12:11] LABS: Basophils # 0.1 K/mcL (0.0-0.2); Basophils % 0.7 %; Eosinophils # 0.1 K/mcL (0.0-0.6); Eosinophils % 1.2 %; Hematocrit 45.3 % (37.5-50.1); Hemoglobin 14.6 g/dL (12.9-16.9); Immature Granulocytes % 0.7 % (0-4); Lymphocytes # 1.5 K/mcL (0.6-4.6); Lymphocytes % 15.8 %; Mean Corpuscular HGB Conc 32.2 g/dL (31.6-35.5); Mean Corpuscular Hemoglobin 28.9 pg (28.0-33.3); Mean Corpuscular Volume 89.7 fL (83.0-100.0); Monocytes # 0.9 K/mcL (0.0-1.3); Monocytes % 9.9 %; Neutrophils # 6.8 K/mcL (1.6-8.9); Platelet Count 274 K/mcL (140-400); Red Blood Count 5.05 M/mcL (4.19-5.50); Segmented Neutrophils % 71.7 %
[2018-07-07 12:23] LABS: Prothrombin Time 11.6 Seconds (9.4-12.1)
[2018-07-07 12:33] LABS: Chol/HDL Ratio 5.7 (0-4.9)
[2018-07-07] MEDS ORDERED: OXYCODONE Oral CONC 10 MG/0.5 ML ORAL.SYG SL PRN ×2 (12:49→16:55)
[2018-07-07] MEDS ORDERED: 0.9 % Sodium Chloride 1,000 ML IVC SCH (13:00)
--- NOTE | 2018-07-07 13:26 | Urology - Consult Note ---
Date of Encounter: 07/07/18 Time of Encounter: 13:24 - Assessment and Plan (1) Bilateral hydronephrosis Current Visit: Yes Status: Acute Assessment and plan: Bilateral hydronephrosis secondary to proximal right ureteral calculus and distal left ureteral calculus. The patient has multiple additional large stones in the right kidney. Discussed findings and options for management. Plan: Urgent urinary diversion in setting of bilateral ureteral obstruction. (2) Bilateral ureteral calculi Current Visit: Yes Status: Acute Assessment and plan: 17 mm on right and proximal ureter. 11 mm left and mid distal ureter. Additionally sizable stones in right kidney. Additional small stones in left kidney. Discussed findings and options for management. Plan: Urgent bilateral urinary diversion by stent placement in OR today. Holmium laser lithotripsy of left ureteral calculus in OR today. Stage address of right renal and ureteral calculi as outpatient most likely via PCNL (3) Renal calculus, bilateral Current Visit: Yes Status: Acute Assessment and plan: 3 small stones on left which do not require procedural addressed. Multiple large stones on the right which will require surgical dress. Plan: Urgent urinary diversion with address of left ureteral calculus in OR today. Follow-up with Dr. Jarquin, his established urologist, as outpatient for staged address of large stone burden in the right kidney and right proximal ureter Urology CN:HPI Consult date: 07/07/18 Reason for consult Urology: Hydronephrosis (bilateral hydro, bilateral ureteral and renal calculi) History of present illness: Very pleasant 48-year-old gentleman with long-standing history of nephrolithiasis status post multiple spontaneous passages, procedures adm issions. Prior stone analysis revealed brushite stones. Patient has not completed 24-hour urine for metabolic evaluation. He presents to the ER for abdominal pain. CT reveals bilateral obstructing ureteral stones with bilateral hydronephrosis. The patient is admitted for pain control and urologic evaluation and management. Patient is uncomfortable but denies fevers chills. The patient denies exacerbating or remitting factors. The patient has gross hematuria. Patient reports his pain is progressive last several days. Past Med Surg Social Fam HX - Past Medical History Medical history: DVT, kidney stones Additional medical history: chronic back pain Psychiatric history: anxiety, depression - Past Surgical History Surgical History: cholecystectomy, orthopedic, other Additional surgical history: Back Surgery. Lithotripsy - Social History Smoking Status: Current every day smoker Smokeless Tobacco Status: No Alcohol use: occasionally Drug use: none - Family History Maternal Grandfather Hx Family Cardiac Disorders: No Hx Family Respiratory Disorders: No Hx Family Cancer: Yes (Colon) Hx Family GI Disorders: No Hx Family Endocrine Disorder: No Hx Family Neuromuscular Disorders: No Hx Family Neurologic Disorders: No Hx Family HEENT Disorders: No Hx Family Autoimmune Disorders: No Medications and Allergies Ibuprofen [Motrin] 600 mg PO QID PRN 02/14/17 [History] Allergy/AdvReac Type Severity Reaction Status Date / Time Enoxaparin [From Lovenox] Allergy Difficulty Verified 07/07/18 08:24 Breathing heparin Allergy Swelling Verified 07/07/18 08:24 of Lip/Tongue/Throat Warfarin Allergy Difficulty Verified 07/07/18 08:24 Breathing gabapentin AdvReac Agitated Verified 07/07/18 08:24 naproxen [From Naprosyn] AdvReac Vomiting Verified 07/07/18 08:24 Review of Systems - Constitutional no chills, no fever(s) - EENT Nose, mouth and throat: no dizziness, no sore throat - Cardiovascular no chest pain, no dyspnea - Respiratory no cough - Gastrointestinal abdominal pain, no fecal incontinence - Genitourinary no difficulty urinating, no genital pain - Musculoskeletal back pain, no muscle weakness - Integumentary no lesions, no rash - Neurological no confusion, no sensory deficit - Psychiatric no anxiety, no confusion - Hematologic/Lymphatic no lymphadenopathy - Allergic/Immunologic no throat swelling, no wheezing Exam Initial Vital Signs Temp Pulse Resp BP Pulse Ox 97.6 F 104 20 151/99 95 07/07/18 08:20 07/07/18 08:20 07/07/18 08:20 07/07/18 08:20 07/07/18 08:20 - General physical appearance Present: well developed, well nourished, no distress - Eyes Present: normal ocular movement - ENT Present: normal nares, no congestion - Neck Present: trachea midline - Respiratory Present: normal respiratory effort - Cardiovascular Cardiovascular exam IM: RRR - Abdomen Abdomen: Present: soft, tender. Absent: non tender - Integumentary Present: no rash, no growths - Neurologic Present: normal coordination - Musculoskeletal Present: normal gait Urology Results - Labs 07/07/18 11:55 07/07/18 08:33 Abnormal lab results MPV 9.0 fL (9.4-12.4) L 07/07/18 11:55 Glucose 112 mg/dL (70-105) H 07/07/18 08:33 Calcium 10.9 mg/dL (8.6-10.3) H 07/07/18 08:33 Cholesterol 211 mg/dL (< 200) H 07/07/18 11:55 LDL Cholesterol, Calc 148 mg/dL (0-99) H 07/07/18 11:55 HDL Cholesterol 37 mg/dL (40-59) L 07/07/18 11:55 Cholesterol/HDL Ratio 5.7 (0-4.9) H 07/07/18 11:55 Urine Protein 30 mg/dL (Neg-Trace) H 07/07/18 08:34 Urine Blood Large (Negative) H 07/07/18 08:34 Ur Leukocyte Esterase Moderate (Negative) H 07/07/18 08:34 Urine Microscopic RBC 50-100 per hpf (0-3) H 07/07/18 08:34 Urine Microscopic WBC 5-15 per hpf (0-3) H 07/07/18 08:34 Ur Squamous Epith Cells Many per lpf (None-Few) H 07/07/18 08:34 Ur Culture Indicated? NO. (NO) A 07/07/18 08:34 Diabetes panel 07/07/18 07/07/18 Range/Units 08:33 11:55 Sodium 138 (136-145) mEq/L Potassium 4.5 (3.5-5.1) mEq/L Chloride 107 (98-107) mEq/L Carbon Dioxide 25 (23-29) mEq/L BUN 18 (6-20) mg/dL Creatinine 1.10 (0.70-1.30) mg/dL Glucose 112 H (70-105) mg/dL Calcium 10.9 H (8.6-10.3) mg/dL Triglycerides 131 (< 150) mg/dL HDL Cholesterol 37 L (40-59) mg/dL Calcium panel 07/07/18 Range/Units 08:33 Calcium 10.9 H (8.6-10.3) mg/dL Pituitary panel 07/07/18 Range/Units 08:33 Sodium 138 (136-145) mEq/L Potassium 4.5 (3.5-5.1) mEq/L Chloride 107 (98-107) mEq/L Carbon Dioxide 25 (23-29) mEq/L BUN 18 (6-20) mg/dL Creatinine 1.10 (0.70-1.30) mg/dL Glucose 112 H (70-105) mg/dL Calcium 10.9 H (8.6-10.3) mg/dL Adrenal panel 07/07/18 Range/Units 08:33 Sodium 138 (136-145) mEq/L Potassium 4.5 (3.5-5.1) mEq/L Chloride 107 (98-107) mEq/L Carbon Dioxide 25 (23-29) mEq/L BUN 18 (6-20) mg/dL Creatinine 1.10 (0.70-1.30) mg/dL Glucose 112 H (70-105) mg/dL Calcium 10.9 H (8.6-10.3) mg/dL All other labs normal. - Imaging CT scan - abdomen: image reviewed CT scan - pelvis: image reviewed (CT images of abdomen and pelvis reviewed and interpreted independently during consultation today) Consult Discharge Plan - Plan Referrals: [facility] [Primary Care Provider[facility] -
--- NOTE | 2018-07-07 14:30 | Anesthesia Evaluation PreOp ---
Date of Encounter: 07/07/18 Time of Encounter: 14:28 - Past History Planned Operation: cysto, bilateral stents, laser lithotripsy Cardiac History: Denies any Significant Hx Pulmonary History: Smoker, LAM Dx (probable) ADOPTION SOCIAL WORKER History: Other (CLBP, anxiety and depression) Other Medical History: Other (morbid obesity BMI 44, hx DVT) Anesthesia History: No Prior Anesthetic Complications, Past Anesthesia (back sx, sue, litho) Alcohol Use: occasionally Drug use: none Medications and Allergies Ibuprofen [Motrin] 600 mg PO QID PRN 02/14/17 [History] Allergy/AdvReac Type Severity Reaction Status Date / Time Enoxaparin [From Lovenox] Allergy Difficulty Verified 07/07/18 08:24 Breathing heparin Allergy Swelling Verified 07/07/18 08:24 of Lip/Tongue/Throat Warfarin Allergy Difficulty Verified 07/07/18 08:24 Breathing gabapentin AdvReac Agitated Verified 07/07/18 08:24 naproxen [From Naprosyn] AdvReac Vomiting Verified 07/07/18 08:24 - Meds/Allergy Pre-op Review Medications Reviewed: Yes Allergies Reviewed: Yes Beta Blockers on Current Med List: No Anesthesia Results - Labs 07/07/18 11:55 07/07/18 08:33 Anesthesia Exam Selected Entries 07/07/18 11:37 Temperature 98.0 F Pulse Rate 87 Respiratory Rate 16 Blood Pressure 148/83 O2 Sat by Pulse Oximetry 92 Oxygen Delivery Method Room Air Weight: 169kg BMI 44 NPO (# of Hours): 8 - HEENT Pupil (Motor): EOMI Mallampati: II Teeth: Missing (lower), Edentulous (upp[er) Oral Opening: Less than or equal to 3 - AD[employer]ION SOCIAL WORKER LOC: Oriented AD[employer]ION SOCIAL WORKER Motor: Normal RUE, Normal LUE, Normal RLE, Normal LLE, Normal Face [employer] Sensory: Normal: RUE, LUE, RLE, LLE, Face - Cardiac Rhythm: Regular Murmur: None - Pulmonary Breath Sounds: bilateral Clear Respiratory Effort: Symmetrical Anesthesia Assess/Plan ASA Score: 3 Modified Andre Scale for Level of Consciousness: Cooperative, oriented, and tranquil Anesthetic Plan: General Monitoring Plan: Standard Monitors Recovery Plan: PACU (agrees to GA)
[2018-07-07] MEDS ORDERED: Isovue-300 30 ML VIAL ONE (14:34)
[2018-07-07] MEDS ORDERED: ceFAZolin 2,000 MG in Water for inj. (sterile) 20 ML 20 ML IVP ONE ×2 (14:48→16:55)
[2018-07-07] MEDS ORDERED: *HR* Midazolam HCl 2 MG/2 ML VIAL ONE (14:51)
[2018-07-07] MEDS ORDERED: *HR* FentaNYL (PF) 100 MCG/2 ML VIAL ONE ×2 (14:51→15:07)
[2018-07-07] MEDS ORDERED: Ondansetron 4 MG/2 ML VIAL ONE (14:51)
[2018-07-07] MEDS ORDERED: Dexamethasone 4 MG/ML VIAL ONE (14:51)
[2018-07-07] MEDS ORDERED: Lidocaine -MPF 2% 2 ML VIAL ONE (14:51)
[2018-07-07] MEDS ORDERED: *HR* Propofol 200 MG/20 ML VIAL IVP ONE (14:51)
[2018-07-07] MEDS ORDERED: *HR* Succinylcholine 200 MG/10 ML VIAL IVP ONE (14:57)
[2018-07-07] MEDS ORDERED: Lidocaine -MPF 4% 5 ML AMPUL ONE (15:08)
[2018-07-07] MEDS ORDERED: *HR* PHENYLEPHRINE 1,000 MCG/10 ML SYRINGE IVP ONE ×2 (15:20→15:55)
[2018-07-07] MEDS ORDERED: Isovue-300 150 ML INFUS..BTL ONE (15:27)
[2018-07-07] MEDS ORDERED: Albuterol 2.5 MG/3 ML NEBULIZER IH ONE (15:37)
[2018-07-07] MEDS ORDERED: *HR* HYDROmorphone 2 MG TABLET PO PRN ×2 (15:37→16:55)
[2018-07-07] MEDS ORDERED: Ondansetron 4 MG/2 ML VIAL IVP ONE ×2 (15:37→16:55)
[2018-07-07] MEDS ORDERED: *HR* OxyCODONE Immed Rel 5 MG TABLET PO PRN ×2 (15:37→16:55)
[2018-07-07] MEDS ORDERED: *HR* Promethazine 25 MG/ML VIAL IVP PRN ×2 (15:37→16:55)
[2018-07-07] MEDS ORDERED: MORPHINE SUL Oral CONC 10 MG/0.5 ML ORAL.SYG SL PRN ×2 (15:37→16:55)
[2018-07-07] MEDS ORDERED: Dexamethasone 4 MG/ML VIAL IVP ONE ×2 (15:37→16:55)
--- NOTE | 2018-07-07 16:23 | Operative Note ---
Date of procedure: 07/07/18 Pre-op diagnosis: Bilateral ureteral calculi, bilateral renal calculi, bilateral hydronephros Post-op diagnosis: same Procedure: Cystoscopy, bilateral retrograde ureteropyelogram, left ureteroscopy, holmium laser lithotripsy of left ureteral calculus (complicated), bilateral ureteral JJ stent placement, intraoperative interpretation of all radiographic images by surgeon in real time to facilitate procedure Implants: Bilateral 6 x 28 double-J ureteral stents Complications: Stone impacted in the mid to distal ureter. Unable to access with a rigid scope requiring conversion to flexible ureteroscopy. This extended time of the procedure by 50% Surgeon: Joel Wheat Was there an coding assistant present: No Estimated blood loss (cc): 5 Specimen: none Condition: stable Disposition: PACU Procedure in Detail: The patient was brought to the operating theater identified by name and date of . The patient was administered a general anesthetic. The patient was placed in dorsal lithotomy where he was prepped and draped in a normal sterile fashion. At this point osvaldo inserted into the urethral meatus and advanced toward the bladder under direct visualization. There were no mucosal abnormalities of the urethra or bladder. Using an open-ended catheter a right retrograde ureteral pyelogram was performed this showed obstruction at the level of the proximal ureter with significant hydronephrosis. A Glidewire was adva nced beyond the obstruction into the renal pelvis wire was secured to the drape. At this point using the same open-ended ureteral catheter a left retrograde retropyelogram was performed. This revealed obstruction at the level of the mid to distal ureter and a large filling defect consistent with the stone seen on CT. Proximal to this stone moderate hydroureteronephrosis was appreciated. At this point a Glidewire was advanced beyond the stone into the left renal pelvis. A Glidewire secured to the drape. All cystoscopic x-rays were removed leaving the Glidewire in place. At this point a semirigid ureteroscope was obtained advanced meatus and into the left distal ureter. The ureteroscope was advanced up until the level of the stone. The level stone was narrowed due to impaction. It was at the level of the pelvic brim. Commendation of impaction and stone location, it procedure we are unable to fully access the stone for fragmentation. A 365 holmium laser fiber was passed through the ureteroscope and the stone was partially fragmented, but we are unable to fully fragmented due to impaction and location. At this point the semirigid ureteroscope was removed. An access sheath was advanced over the wire into the distal ureter. Through the access sheath a flexible ureteroscope was obtained the flexible ureteroscope was advanced up to low stone using the flexible scope we had an easier time accessing the stone with the laser fiber. The stone was then fragmented the multiple small pieces which were felt to be of passable size. At this point Allis was removed the patient's bladder except for the Glidewire. Over the existing Glidewire wires and under fluoroscopic guidance bilateral 6 x 28 double-J stents were advanced. Once the stents were felt to be in good position the bladder was removed. Proximal and distal curls of the stent were felt to be in excellent position on fluoroscopy. This ended the operative procedure.
--- NOTE | 2018-07-07 16:47 | Anesthesia Evaluation Post Op ---
Date of Encounter: 07/07/18 Time of Encounter: 16:46 - Vital Signs Vital Signs: Vital Signs/O2 Sat, Most Current Temp Pulse Resp BP Pulse Ox 98 F 87 16 142/91 90 07/07/18 16:15 07/07/18 16:25 07/07/18 16:25 07/07/18 16:25 07/07/18 16:25 - Lungs Lungs: Clear Ascult./Percussion - Airway Airway: Non-obstructed - Cardiovascular Regular Rate - Mental Status Mental Status: Alert & Oriented, Answers Appropriately - Pain Pain Scale: 0 - Nausea Vomiting Nausea Vomiting: Not Present - Hydration Hydration: Tolerates oral liquids, Ramos catheter - Discharge PostOp Status: Transfer Patient to floor
[2018-07-07] MEDS: 0.9 % Sodium Chloride 1,000 ML IVC SCH ×2 (17:00→23:48)
[2018-07-08 05:52] LABS: Alanine Aminotransferase 23 Units/L (7-52); Albumin 3.8 g/dL (3.5-5.7); Albumin/Globulin Ratio 1.4 (1.1-2.2); Alkaline Phosphatase 86 Units/L (34-104); Aspartate Amino Transferase 18 Units/L (13-39); BUN/Creatinine Ratio 21 (6-26); Bilirubin,Total 0.4 mg/dL (0.3-1.0); Blood Urea Nitrogen 21 mg/dL (6-20); Carbon Dioxide 25 mEq/L (23-29); Chloride 107 mEq/L (98-107); Globulin 2.8 g/dL (2.4-3.5); Glucose 177 mg/dL (70-105); Magnesium 1.8 mg/dL (1.6-2.6); Osmolality,Calculated 291 (280-300); Phosphorous 2.5 mg/dL (2.7-4.5); Sodium 137 mEq/L (136-145); Total Protein 6.6 g/dL (6.4-8.9); eGFR For Non-African Americans > 60 (> 60)
[2018-07-08 06:49] VITALS: BP 110/71
--- NOTE | 2018-07-08 08:42 | Discharge Summary ---
Date of Encounter: 07/08/18 Time of Encounter: 08:40 - Discharge Diagnosis (1) Renal calculus, bilateral Priority: Primary Status: Acute (2) Bilateral hydronephrosis Priority: Primary Status: Acute (3) Chronic low back pain without sciatica Priority: Secondary Status: Chronic Qualifiers: Back pain laterality: midline Qualified Code(s): M54.5 - Low back pain; G89.29 - Other chronic pain Hospital course: HOSPITAL COURSE: The patient is a 48-year-old man. He has had long-standing history of recurrent kidney stone disease. We admitted him with a bilateral flank pain secondary to bilateral obstructing ureteral stone/bilateral hydronephrosis. We presented him to urology. They proceeded with cystoscopy, bilateral retrograde ureteropyelogram, laser lithotripsy and bilateral ureteral JJ stent placement. The patient did well during and after the surgery. CONDITION AT DISCHARGE: He feels good. His pain subsided. Denies nausea and vomiting. He has no problems with voiding. His urine is slightly reddish in color. Skin: Free of rash and discoloration. Respiratory: Normal breath sounds with no crackles and wheezes bilaterally. CV: Heart is regular with no gallop or murmur. GI: Abdomen is flat and soft with no palpable mass or visceromegaly. Neuro exam: There is no focal deficits. Normal speech, swallowing and gait. SEE DISCHARGE ORDERS/MEDICATIONS.. Discharge discussed with: patient, family, nurse - Time Spent with Patient Total time spent providing and/or coordinating discharge services: Less than 30 minutes (25 minutes..) - Discharge Medications Prescriptions: Levofloxacin [Levaquin] 500 mg PO QDPC 6 Days #6 tablet Home Medications: Ibuprofen [Motrin] 600 mg PO QID PRN 02/14/17 [History] Acetaminophen [Tylenol] 650 mg PO Q6HR PRN tablet 07/08/18 [Rx] Levofloxacin [Levaquin] 500 mg PO QDPC 6 Days #6 tablet 07/08/18 [Rx] Allergies/Adverse Reactions: Allergy/AdvReac Type Severity Reaction Status Date / Time Enoxaparin [From Lovenox] Allergy Difficulty Verified 07/07/18 08:24 Breathing heparin Allergy Swelling Verified 07/07/18 08:24 of Lip/Tongue/Throat Warfarin Allergy Difficulty Verified 07/07/18 08:24 Breathing gabapentin AdvReac Agitated Verified 07/07/18 08:24 naproxen [From Naprosyn] AdvReac Vomiting Verified 07/07/18 08:24 Date of admission: 07/07/18 10:52 Primary care physician: PCP ERNIE Consults: 07/07/18 10:29 Consult to Urology [CONS] Stat Consulting Provider: Urology Adina Reason for Consult: bilateral obstructing renal calculi Call Completed: Yes Discharging clinician: David Guevara Anticipated date of discharge: 07/08/18 - Constitutional Vitals: Temp Pulse Resp BP Pulse Ox 98.4 F 83 16 110/71 93 07/08/18 06:45 07/08/18 06:45 07/08/18 06:45 07/08/18 06:45 07/08/18 06:45 General appearance: Present: A&O X 3, no acute distress, answers questions appropriately Exam: xx - Patient Status Disposition: Home, Self-Care Condition: Good Functional capacity at discharge: independent ambulation Overall status at discharge: patient is back to baseline - Discharge Instructions Follow Up With: Joel Camacho [Partnered Physician] - (Office will call patient with date and time of appointment. Thank you) [facility],PCP [Primary Care Provider] - Additional Instructions: OFFICE OF DR. CAMACHO (UROLOGY) TO CALL THE PATIENT ABOUT THE APPOINTMENT.. - Diet and Activity Activity: resume usual activities as tolerated Diet: low fat, low cholesterol - VTE Reasons for not Prescribing Prophylaxis: Treatment not Indicated - Low risk for VTE Deep Vein Thrombosis/Pulmonary Embolism Present on Admission: No
[2018-07-08] MEDS ORDERED: Nicotine 21 MG PATCH.TD24 TD SCH (09:00)
[2018-07-08] MEDS ORDERED: Levofloxacin 500 MG/100 ML 500 MG/100 ML BAG IVPB SCH (09:00)
== END 2018-07-08 09:37 | disposition home or self-care (01) ==
LOC: 3ANU 08:13 → EMEROOARM 08:13 → SUATTDRO 10:52 → 3ANU 11:30
PROVIDERS: ADMIT Internal Medicine Nephrology; ATTEND Internal Medicine

== ENCOUNTER 2018-07-22 07:48 | Observation (INO) ==
--- NOTE | 2018-07-22 07:52 | Anesthesia Evaluation PreOp ---
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 Other Medical History: Renal (MASON KIDNEY STONES), Other (MORBID OBESITY, BMI 47, ARTHRITIS) Anesthesia History: No Prior Anesthetic Complications, Past Anesthesia Alcohol Use: occasionally Drug use: none Medications and Allergies Ibuprofen [Motrin] 600 mg PO QID PRN 02/14/17 [History] Acetaminophen [Tylenol] 650 mg PO Q6HR PRN tablet 07/08/18 [Rx] Allergy/AdvReac Type Severity Reaction Status Date / Time Enoxaparin [From Lovenox] Allergy Difficulty Verified 07/07/18 08:24 Breathing heparin Allergy Swelling Verified 07/07/18 08:24 of Lip/Tongue/Throat Warfarin Allergy Difficulty Verified 07/07/18 08:24 Breathing gabapentin AdvReac Agitated Verified 07/07/18 08:24 naproxen [From Naprosyn] AdvReac Vomiting Verified 07/07/18 08:24 - Meds/Allergy Pre-op Review Medications Reviewed: Yes Allergies Reviewed: Yes Anesthesia Results - Labs Laboratory Last Values WBC 9.5 K/mcL (4.3-11.1) 07/07/18 11:55 RBC 5.05 M/mcL (4.19-5.50) 07/07/18 11:55 Hgb 14.6 g/dL (12.9-16.9) 07/07/18 11:55 Hct 45.3 % (37.5-50.1) 07/07/18 11:55 MCV 89.7 fL (83.0-100.0) 07/07/18 11:55 MCH 28.9 pg (28.0-33.3) 07/07/18 11:55 MCHC 32.2 g/dL (31.6-35.5) 07/07/18 11:55 RDW 14.0 % (11.5-14.5) 07/07/18 11:55 Plt Count 274 K/mcL (140-400) 07/07/18 11:55 MPV 9.0 fL (9.4-12.4) L 07/07/18 11:55 Immature Gran % 0.7 % (0-4) 07/07/18 11:55 Seg Neutrophils % 71.7 % 07/07/18 11:55 Lymphocytes % 15.8 % 07/07/18 11:55 Monocytes % 9.9 % 07/07/18 11:55 Eosinophils % 1.2 % 07/07/18 11:55 Basophils % 0.7 % 07/07/18 11:55 Neutrophils # 6.8 K/mcL (1.6-8.9) 07/07/18 11:55 Lymphocytes # 1.5 K/mcL (0.6-4.6) 07/07/18 11:55 Monocytes # 0.9 K/mcL (0.0-1.3) 07/07/18 11:55 Eosinophils # 0.1 K/mcL (0.0-0.6) 07/07/18 11:55 Basophils # 0.1 K/mcL (0.0-0.2) 07/07/18 11:55 PT 11.6 Seconds (9.4-12.1) 07/07/18 11:55 INR 1.0 07/07/18 11:55 Sodium 137 mEq/L (136-145) 07/08/18 05:16 Potassium 4.0 mEq/L (3.5-5.1) 07/08/18 05:16 Chloride 107 mEq/L (98-107) 07/08/18 05:16 Carbon Dioxide 25 mEq/L (23-29) 07/08/18 05:16 BUN 21 mg/dL (6-20) H 07/08/18 05:16 Creatinine 1.02 mg/dL (0.70-1.30) 07/08/18 05:16 Est GFR ( Amer) > 60 (> 60) 07/08/18 05:16 Est GFR (Non-Af Amer) > 60 (> 60) 07/08/18 05:16 BUN/Creatinine Ratio 21 (6-26) 07/08/18 05:16 Glucose 177 mg/dL (70-105) H 07/08/18 05:16 POC Glucose 113 mg/dL (70-99) H 07/07/18 11:36 Calculated Osmolality 291 (280-300) 07/08/18 05:16 Calcium 10.0 mg/dL (8.6-10.3) 07/08/18 05:16 Phosphorus 2.5 mg/dL (2.7-4.5) L 07/08/18 05:16 Magnesium 1.8 mg/dL (1.6-2.6) 07/08/18 05:16 Total Bilirubin 0.4 mg/dL (0.3-1.0) 07/08/18 05:16 AST 18 Units/L (13-39) 07/08/18 05:16 ALT 23 Units/L (7-52) 07/08/18 05:16 Alkaline Phosphatase 86 Units/L (34-104) 07/08/18 05:16 Serum Total Protein 6.6 g/dL (6.4-8.9) 07/08/18 05:16 Albumin 3.8 g/dL (3.5-5.7) 07/08/18 05:16 Globulin 2.8 g/dL (2.4-3.5) 07/08/18 05:16 Albumin/Globulin Ratio 1.4 (1.1-2.2) 07/08/18 05:16 Triglycerides 131 mg/dL (< 150) 07/07/18 11:55 Cholesterol 211 mg/dL (< 200) H 07/07/18 11:55 LDL Cholesterol, Calc 148 mg/dL (0-99) H 07/07/18 11:55 VLDL Cholesterol, Calc 26 mg/dL (< 31) 07/07/18 11:55 HDL Cholesterol 37 mg/dL (40-59) L 07/07/18 11:55 Cholesterol/HDL Ratio 5.7 (0-4.9) H 07/07/18 11:55 Urine Color Yellow (Yellow) 07/07/18 08:34 Urine Clarity Clear (Clear) 07/07/18 08:34 Urine pH 6.5 pH Units (5.0-8.0) 07/07/18 08:34 Ur Specific [place] 1.012 (1.010-1.025) 07/07/18 08:34 Urine Protein 30 mg/dL (Neg-Trace) H 07/07/18 08:34 Urine Glucose (UA) Normal mg/dL (Normal) 07/07/18 08:34 Urine Ketones Negative mg/dL (Negative) 07/07/18 08:34 Urine Blood Large (Negative) H 07/07/18 08:34 Urine Nitrite Negative (Negative) 07/07/18 08:34 Urine Bilirubin Negative (Negative) 07/07/18 08:34 Urine Urobilinogen Normal mg/dL (Normal) 07/07/18 08:34 Ur Leukocyte Esterase Moderate (Negative) H 07/07/18 08:34 Urine Microscopic RBC 50-100 per hpf (0-3) H 07/07/18 08:34 Urine Microscopic WBC 5-15 per hpf (0-3) H 07/07/18 08:34 Ur Squamous Epith Cells Many per lpf (None-Few) H 07/07/18 08:34 Urine Bacteria None Seen per hpf (None-Few) 07/07/18 08:34 Hyaline Casts None Seen per lpf (None-Few) 07/07/18 08:34 Ur Culture Indicated? NO. (NO) A 07/07/18 08:34 Anesthesia Exam O2 Sat Height 1.88 m Weight 166.922 kg NPO (# of Hours): 8 - HEENT Mallampati: II Teeth: Missing Denture Type: Upper: Complete Oral Opening: Greater than 3 - Cardiac Rhythm: Regular - Pulmonary Breath Sounds: bilateral Clear Respiratory Effort: Symmetrical Anesthesia Assess/Plan ASA Score: 3 Anesthetic Plan: General Monitoring Plan: Standard Monitors Recovery Plan: PACU Anes Supervising Prov Stmt: [employer] LIST NOT UPDATED THIS VISIT PATIENT'S CHART AND CURRENT MEDICATIONS REVIEWED PATIENT INFORMED AND CONSENTED. RISKS, BENEFITS, AND ALTERNATIVES DISCUSSED. PATIENT WISHES TO PROCEED.
[2018-07-22] MEDS ORDERED: CeFAZolin Syr 2,000MG/20 ML 2,000 MG/20 ML SYRINGE IVPB ONE (08:10)
[2018-07-22] MEDS ORDERED: CeFAZolin Syr 3,000MG/30 ML 3,000 MG/30 ML SYRINGE IVPB ONE (08:12)
[2018-07-22] MEDS ORDERED: Albuterol 2.5 MG/3 ML NEBULIZER IH ONE (08:13)
[2018-07-22] MEDS: Ringers Solution, Lactated 1,000 ML IVC SCH (08:24)
[2018-07-22] MEDS ORDERED: *HR* Methadone 10 MG TABLET PO ONE ×2 (08:26→08:28)
[2018-07-22] MEDS: *HR* Methadone 10 MG TABLET PO ONE ×2 (08:35)
--- NOTE | 2018-07-22 08:54 | History & Physical Report ---
Date of Encounter: 07/22/18 Time of Encounter: 08:53 24 Hour HP Update - Instructions Instructions: If the History and Physical is less than 30 days old and was completed prior to A.M. admission and or procedure and has NOT been updated on calendar day of procedure please complete this update prior to performing procedure. - Update Patient reports changes in Medical Condition: No Changes in examination, assessment, or condition: No Changes in Medication: No Preop tests/diagnostics Reviewed: Yes Surgery Remains Indicated: Yes Consent for Planned Operative Procedure(s) Verified: Yes - Pre-Operative Checklist Preoperative Checklist Indicated: Yes Prophylactic Antibiotic Ordered: Yes Home Medications Include Beta Aneudy: No Beta Aneudy Taken Today (Day of Surgery): No Beta Aneudy Taken Yesterday (Day Prior to Surgery): No Is VTE Prophylaxis Indicated?: Yes
[2018-07-22] MEDS ORDERED: *HR* Midazolam HCl 2 MG/2 ML VIAL IVP ONE ×2 (09:05→09:51)
[2018-07-22] MEDS ORDERED: *HR* FentaNYL (PF) 100 MCG/2 ML VIAL IVP ONE ×2 (09:05→09:51)
[2018-07-22] MEDS ORDERED: 0.9 % Sodium Chloride 1,000 ML ONE (09:09)
--- NOTE | 2018-07-22 09:40 | History & Physical Report ---
Date of Encounter: 07/22/18 Time of Encounter: 09:39 24 Hour HP Update - Instructions Instructions: If the History and Physical is less than 30 days old and was completed prior to A.M. admission and or procedure and has NOT been updated on calendar day of procedure please complete this update prior to performing procedure. - Update Patient reports changes in Medical Condition: No Changes in examination, assessment, or condition: No Changes in Medication: No Preop tests/diagnostics Reviewed: Yes Pre-Op MRSA Screen: Negative Surgery Remains Indicated: Yes Consent for Planned Operative Procedure(s) Verified: Yes - Pre-Operative Checklist Preoperative Checklist Indicated: Yes Prophylactic Antibiotic Ordered: Yes Home Medications Include Beta Aneudy: No Beta Aneudy Taken Today (Day of Surgery): No Beta Aneudy Taken Yesterday (Day Prior to Surgery): No Is VTE Prophylaxis Indicated?: NO
[2018-07-22] MEDS ORDERED: Isovue-300 50 ML VIAL IVP ONE ×2 (10:17→10:51)
[2018-07-22] MEDS ORDERED: Lidocaine -MPF 4% 5 ML AMPUL ONE (10:30)
[2018-07-22] MEDS ORDERED: Lidocaine -MPF 2% 2 ML VIAL ONE (10:30)
[2018-07-22] MEDS ORDERED: *HR* Rocuronium Bromide 50 MG/5 ML VIAL ONE (10:30)
[2018-07-22] MEDS ORDERED: *HR* Succinylcholine 200 MG/10 ML VIAL IVP ONE ×2 (10:30→12:13)
[2018-07-22] MEDS ORDERED: *HR* Propofol 200 MG/20 ML VIAL IVP ONE ×2 (10:31→11:23)
[2018-07-22] MEDS ORDERED: *HR* FentaNYL (PF) 100 MCG/2 ML VIAL ONE ×2 (10:31→12:13)
[2018-07-22] MEDS ORDERED: *HR* Midazolam HCl 2 MG/2 ML VIAL ONE (10:31)
--- NOTE | 2018-07-22 10:53 | IR Procedure Note ---
Date of procedure: 07/22/18 Consent Obtained: Verbal consent, Written consent Timeout: Correct patient and procedure verified, Correct site verified, Time out performed, Skin prep completed Local anesthetic: Lidocaine 1% Indications: right kidney stones, prior to PCNL Procedure Performed: right nephrostomy Was there an hotel assistant general manager present: No Site/Technique: right kidney Results/Findings: right hydronephrosis, large proximal right ureteral stone obstructing Estimated blood loss (cc): 0 Post Procedure Treatment Plan: to OR Specimen: NA
[2018-07-22] MEDS ORDERED: Isovue-300 30 ML VIAL ONE ×3 (11:08→11:38)
[2018-07-22] MEDS ORDERED: *HR* HYDROmorphone (PF) 1 MG/ML SYRINGE IVP PRN (11:31)
[2018-07-22] MEDS ORDERED: *HR* Meperidine 25 MG/ML SYRINGE IVP PRN (11:31)
[2018-07-22] MEDS ORDERED: *HR* Labetalol 20 MG/4 ML SYRINGE IVP PRN (11:31)
[2018-07-22] MEDS ORDERED: Ondansetron 4 MG/2 ML VIAL IVP ONE (11:31)
[2018-07-22] MEDS ORDERED: *HR* OxyCODONE Immed Rel 5 MG TABLET PO PRN (11:31)
[2018-07-22] MEDS ORDERED: *HR* PHENYLEPHRINE 1,000 MCG/10 ML SYRINGE IVP ONE (12:18)
[2018-07-22] MEDS ORDERED: EPHEDrine 50 MG/ML VIAL ONE (12:24)
[2018-07-22] MEDS ORDERED: Naloxone 0.4 MG/ML INJ IVP PRN (14:21)
[2018-07-22] MEDS ORDERED: Ondansetron 4 MG/2 ML VIAL IVP PRN (14:21)
--- NOTE | 2018-07-22 14:21 | Operative Note ---
Date of procedure: 07/22/18 Pre-op diagnosis: Right renal and ureteral calculi Post-op diagnosis: same Procedure: Right percutaneous nephrolithotomy with intraoperative interpretation of radiographic images (antegrade nephrostogram ) in real time by surgeon to facilitate the procedure. Implants: None Surgeon: Joel Wheat Was there an assistant plant control operator present: No Estimated blood loss (cc): 25 Specimen: right renal and ureteral calculi Condition: stable Disposition: PACU Procedure in Detail: The patient about the operating theater identified by name, date of and administered a general anesthetic. The patient was repositioned in prone prepped and draped in the normal sterile fashion. At this point antegrade nephrostogram was performed which showed access was not in the collecting system. At this point we called interventional radiology performed intraoperative consultation (dictated separately). Interventional radiology performed new access into the mid pole calyx. Through this access sheath wire was placed balloon dilation was performed in the nephroscope was inserted. Significant clusters of small stones were encountered in the renal pelvis and lower pole calyceal system. The stones were fragmented and aspirated with the ultrasound wand. The scope was then advanced into the proximal ureter. Several large stones were encountered here. Broken partially with the ultrasound. The larger pieces were grasped and removed intact. Once the ureter was free of stones the kidney was again inspected. No additional large stones were appreciated. At this point Allis was removed from the right kidney. Reflux of irrigant from the right renal pelvis was marginally bloody thus it was felt there is no need for nephrostomy tube. An existing right double-J stent was already in place. One last antegrade nephrostogram was obtained and interpreted intraoperatively by surgeon. This revealed no filling defects consistent with stones. There is significant extravasation from the lower pole where initial access an attempted repeat access was performed. This ended the operative procedure. A single stitch was placed at the skin incision. The Ramos catheter was removed intraoperatively. There were no operative consultations.
[2018-07-22] MEDS: *HR* Promethazine 25 MG/ML VIAL IVP PRN ×2 (14:49→14:55)
--- NOTE | 2018-07-22 15:15 | Anesthesia Evaluation Post Op ---
Date of Encounter: 07/22/18 Time of Encounter: 15:14 - Vital Signs Vital Signs: Vital Signs/O2 Sat, Most Current Temp Pulse Resp BP Pulse Ox 97.6 F 82 14 125/82 94 07/22/18 15:00 07/22/18 15:00 07/22/18 15:00 07/22/18 15:00 07/22/18 15:00 - Lungs Lungs: Clear Ascult./Percussion - Airway Airway: Non-obstructed - Cardiovascular Regular Rate - Mental Status Mental Status: Alert & Oriented, Answers Appropriately - Pain Pain Scale: 0 Pain Scale used: Numeric (1 - 10) - Nausea Vomiting Nausea Vomiting: Not Present - Hydration Hydration: Tolerates oral liquids, Has not voided - Discharge PostOp Status: Transfer Patient to floor
[2018-07-22] MEDS: 0.9 % Sodium Chloride 1,000 ML IVC SCH (16:10)
[2018-07-22] MEDS ORDERED: *HR* OxyCODONE/APAP 5/325 TABLET PO PRN ×2 (19:17)
[2018-07-22] MEDS: Ketorolac 30 MG/ML VIAL IVP PRN (19:58)
[2018-07-23] MEDS: Ketorolac 30 MG/ML VIAL IVP PRN (01:59)
[2018-07-23 06:15] LABS: Basophils % 0.2 %; Eosinophils % 0.1 %; Hematocrit 42.6 % (37.5-50.1); Hemoglobin 13.4 g/dL (12.9-16.9); Immature Granulocytes % 0.6 % (0-4); Lymphocytes # 1.1 K/mcL (0.6-4.6); Lymphocytes % 7.5 %; Mean Corpuscular HGB Conc 31.5 g/dL (31.6-35.5); Mean Corpuscular Hemoglobin 28.2 pg (28.0-33.3); Mean Corpuscular Volume 89.5 fL (83.0-100.0); Mean Platelet Volume 9.2 fL (9.4-12.4); Monocytes # 0.8 K/mcL (0.0-1.3); Monocytes % 5.5 %; Neutrophils # 12.7 K/mcL (1.6-8.9); Platelet Count 327 K/mcL (140-400); Red Blood Count 4.76 M/mcL (4.19-5.50); Red Cell Distribution Width 13.5 % (11.5-14.5); Segmented Neutrophils % 86.1 %
[2018-07-23 06:21] LABS: Prothrombin Time 10.7 Seconds (9.4-12.1)
[2018-07-23] MEDS: 0.9 % Sodium Chloride 1,000 ML IVC SCH ×2 (07:11→09:41)
[2018-07-23 08:01] VITALS: BP 120/75
[2018-07-23] MEDS: Ringers Solution, Lactated 1,000 ML IVC SCH (09:18)
--- NOTE | 2018-07-23 10:57 | Discharge Summary ---
Orders not resulted at time of discharge: Pending orders 07/22/18 14:00 Calculi (stone) Analysis Routine 07/22/18 14:35 Surgical Pathology [PTH] Routine Date of Encounter: 07/23/18 Time of Encounter: 11:00 - Discharge Diagnosis (1) Renal calculus, right Priority: Primary Status: Acute (2) Hydronephrosis Priority: Primary Status: Acute Qualifiers: Hydronephrosis type: with ureteral calculous obstruction Qualified Code(s): N13.2 - Hydronephrosis with renal and ureteral calculous obstruction - Hospital Course Hospital course: Mr. Nolen is a 48 year old male who presents with a history of right renal stone and hydronephrosis. On 07/22/2018, patient was taken to the operating room where he underwent right percutaneous nephrolithotomy and antegrade nephrostogram. There were no surgical complications, and the patient tolerated the procedure well. Postoperative course was relatively unremarkable, and he was dismissed in satisfactory condition. Patient expressed adamant concern for follow-up cystoscopy and stent removal in the office. Patient requested anxiolytic for procedure, and I counseled patient on the need for reliable transportation to and from his procedure. Postoperative expectations, restrictions, activity and follow-up were discussed with patient, and patient verbalized understanding. Time spent discussing smoking cessation with patient: 3 to 10 minutes - Time Spent with Patient Total time spent providing and/or coordinating discharge services: Less than 30 minutes Procedures and tests throughout hospitalization: Right percutaneous nephrolithotomy, antegrade nephrostogram Labs on day of discharge: Labs from last 24 hours 07/23/18 07/23/18 05:45 05:45 WBC 14.7 H RBC 4.76 Hgb 13.4 Hct 42.6 MCV 89.5 MCH 28.2 MCHC 31.5 L RDW 13.5 Plt Count 327 MPV 9.2 L Immature Gran % 0.6 Seg Neutrophils % 86.1 Lymphocytes % 7.5 Monocytes % 5.5 Eosinophils % 0.1 Basophils % 0.2 Neutrophils # 12.7 H Lymphocytes # 1.1 Monocytes # 0.8 Eosinophils # 0.0 Basophils # 0.0 PT 10.7 INR 1.0 - Impressions ITS Impressions Guidance Ultrasound 07/22/18 00:00 IMPRESSION: Successful percutaneous nephrostomy tube placement as described above. D/ / Heath Pool / Heath Pool Interpreting Provider: Heath Pool Nephrostomy 07/22/18 00:00 IMPRESSION: Successful percutaneous nephrostomy tube placement as described above. D/ / Heath Pool / Heath Pool Interpreting Provider: Heath Pool Percutaneous Antegrade Pyelogram 07/22/18 00:00 IMPRESSION: Intraprocedural fluoroscopic spot images as above. See separate procedure report for more information. D/ / 07/22/2018 16:25:42 Karan Fuentes MD / Radha Sanz Interpreting Provider: Karan Fuentes MD - Discharge Medications Prescriptions: Ciprofloxacin HCl [Cipro] 250 mg PO BID #6 tab diazePAM [Valium] 10 mg PO ONCE 1 Days #1 tablet Docusate [Colace] 100 mg PO BID #60 capsule HYDROcodone/Acet 5/325 mg [[place] 5-325 mg] 1 tab PO Q6H PRN 3 Days #12 tab PRN Reason: Moderate Pain Home Medications: Ciprofloxacin HCl [Cipro] 250 mg PO BID #6 tab 07/23/18 [Rx] Docusate [Colace] 100 mg PO BID #60 capsule 07/23/18 [Rx] HYDROcodone/Acet 5/325 mg [[place] 5-325 mg] 1 tab PO Q6H PRN 3 Days #12 tab 07/23/18 [Rx] Ibuprofen [Ibu] 800 mg PO BID PRN 07/23/18 [History] diazePAM [Valium] 10 mg PO ONCE 1 Days #1 tablet 07/23/18 [Rx] Allergies/Adverse Reactions: Allergy/AdvReac Type Severity Reaction Status Date / Time Enoxaparin [From Lovenox] Allergy Difficulty Verified 07/23/18 08:32 Breathing heparin Allergy Swelling Verified 07/23/18 08:32 of Lip/Tongue/Throat Warfarin Allergy Difficulty Verified 07/23/18 08:32 Breathing acetaminophen [From Percocet] AdvReac Nausea Verified 07/23/18 08:32 gabapentin AdvReac Agitated Verified 07/23/18 08:32 naproxen [From Naprosyn] AdvReac Vomiting Verified 07/23/18 08:32 Oxycodone [From Percocet] AdvReac Nausea Verified 07/23/18 08:32 Date of admission: 07/22/18 17:14 Primary care physician: PCP ERNIE Discharging clinician: Fanny Paris Anticipated date of discharge: 07/23/18 Exam Initial Vital Signs Temp Pulse Resp BP Pulse Ox 98.6 F 95 18 147/87 95 07/22/18 08:04 07/22/18 08:04 07/22/18 08:04 07/22/18 08:04 07/22/18 08:04 - General physical appearance Present: well developed, well nourished, no distress, no pain - Eyes Present: PERRL, normal ocular movement - ENT Present: normal nares, no hearing loss, no congestion - Neck Present: no masses, trachea midline - Respiratory Present: normal respiratory effort - Cardiovascular Cardiovascular exam IM: RRR - Abdomen Abdomen: Present: soft, non tender - Integumentary Present: no rash, no abnormal pigmentation - Neurologic Present: normal coordination - Musculoskeletal Present: other (Normal posture) - Patient Status Disposition: Home, Self-Care Condition: Good Functional capacity at discharge: independent ambulation Overall status at discharge: patient is progressing back to baseline - Discharge Instructions [facility] With: [facility]Primary Care Provider[facility] - Joel Wheat [Partnered Physician] - Additional Instructions: Call if fever greater than 101 degrees. May expect drainage from nephrostomy tube site for 3-7 days. Call if drainage exceeds 7 days. May return to normal activity as tolerated. Okay to shower. Okay to use AZO [id number] as needed for urinary symptoms. No tub baths, swimming, or hot tubs until nephrostomy tube site is completely healed. Okay to drive as long as you are no longer taking narcotic pain medicine. Hold anticoagulants and NSAIDs for 3 days if possible. [facility] will call to schedule your follow-up appointment for 2 weeks postoperative. - Diet and Activity Activity: increase activity as tolerated Diet: advance to your usual diet - VTE Documentation of Mechanical Device: Venous foot pump, device
== END 2018-07-23 12:26 | disposition home or self-care (01) ==
LOC: SAMDAY 07:48 → 3BNU 07:48
PROVIDERS: ADMIT Urology; ATTEND Urology

== ENCOUNTER 2019-07-12 18:57 | Observation (INO) ==
[2019-07-12] MEDS ORDERED: 0.9 % Sodium Chloride 1,000 ML IVC ONE (19:31)
[2019-07-12] MEDS ORDERED: Ondansetron 4 MG/2 ML VIAL IVP ONE (19:31)
[2019-07-12] MEDS ORDERED: Ketorolac 15 MG/ML VIAL IVP ONE (19:31)
[2019-07-12] MEDS ORDERED: *HR* HYDROmorphone (PF) 1 MG/ML SYRINGE IVP STA (19:51)
[2019-07-12 19:53] LABS: Basophils # 0.1 K/mcL (0.0-0.2); Basophils % 0.5 %; Eosinophils # 0.1 K/mcL (0.0-0.6); Eosinophils % 0.6 %; Hematocrit 48.6 % (37.5-50.1); Hemoglobin 16.4 g/dL (12.9-16.9); Immature Granulocytes % 0.7 % (0-4); Lymphocytes # 1.6 K/mcL (0.6-4.6); Lymphocytes % 13.2 %; Mean Corpuscular HGB Conc 33.7 g/dL (31.6-35.5); Mean Corpuscular Hemoglobin 29.3 pg (28.0-33.3); Mean Corpuscular Volume 86.8 fL (83.0-100.0); Mean Platelet Volume 9.2 fL (9.4-12.4); Monocytes % 8.4 %; Neutrophils # 9.4 K/mcL (1.6-8.9); Platelet Count 304 K/mcL (140-400); Red Cell Distribution Width 14.2 % (11.5-14.5); Segmented Neutrophils % 76.6 %; White Blood Count 12.3 K/mcL (4.3-11.1)
[2019-07-12 20:12] LABS: BUN/Creatinine Ratio 19 (6-26); Blood Urea Nitrogen 22 mg/dL (6-20); Calcium 10.5 mg/dL (8.6-10.3); Carbon Dioxide 23 mEq/L (23-29); Chloride 106 mEq/L (98-107); Glucose 116 mg/dL (70-105); Osmolality,Calculated 286 (280-300); Potassium 4.4 mEq/L (3.5-5.1); Sodium 136 mEq/L (136-145); eGFR For African Americans > 60 (> 60); eGFR For Non-African Americans > 60 (> 60)
[2019-07-12] MEDS ORDERED: cefTRIAXone 1,000 MG in Water for inj. (sterile) 10 ML IVP ONE (20:27)
[2019-07-12] MEDS ORDERED: *HR* OxyCODONE ER (12 HR) 10 MG TABLET PO ONE (21:59)
[2019-07-12 22:23] LABS: Bilirubin,Urine Small (Negative); Blood,Urine Negative (Negative); Clarity,Urine Cloudy (Clear); Color,Urine Dark Yellow (Yellow); Glucose,Urine (UA) Normal (Normal); Ketones,Urine Negative (Negative); Leukocyte Esterase,Urine Small (Negative); Nitrite,Urine Negative (Negative); PH,Urine 6.5 pH Units (5.0-8.0); Protein,Urine 100 mg/dL (Neg-Trace); Specific Gravity,Urine > 1.030 (1.010-1.025); Urobilinogen,Urine Normal (Normal)
[2019-07-12 22:25] LABS: RBC,Urine 0-3 per hpf (0-3); Squamous Epithelial Cell,Urine Many per lpf (None-Few); WBC,Urine 30-50 per hpf (0-3)
[2019-07-12 22:32] LABS: Calcium Oxalate Crystals,Urine Present; Hyaline Casts,Urine None Seen per lpf (None-Few); Mucus,Urine Few (Few)
[2019-07-12 22:33] LABS: Bacteria,Urine Few per hpf (None-Few); Yeast,Urine Few per hpf (None Seen)
[2019-07-12] MEDS ORDERED: Ketorolac 30 MG/ML VIAL IVP PRN (23:49)
[2019-07-12] MEDS ORDERED: Ondansetron 4 MG/2 ML VIAL IVP PRN (23:50)
[2019-07-12] MEDS ORDERED: Acetaminophen 325 MG TABLET PO PRN (23:50)
[2019-07-13 00:28] LABS: Phosphorous 2.6 mg/dL (2.7-4.5)
[2019-07-13] MEDS: 0.9 % Sodium Chloride 1,000 ML IVC SCH ×2 (00:39→06:09)
[2019-07-13] MEDS ORDERED: Ergocalciferol (VIT D2) 50,000 UNIT (1.25MG) CAP PO ONE (08:00)
[2019-07-13 08:21] LABS: VBG Ionized Calcium 1.34 mmol/L (1.15-1.35)
[2019-07-13 08:37] LABS: Phosphorous 3.6 mg/dL (2.7-4.5); Potassium 4.5 mEq/L (3.5-5.1)
[2019-07-13 08:58] LABS: Hematocrit 46.1 % (37.5-50.1); Hemoglobin 15.1 g/dL (12.9-16.9); Mean Corpuscular HGB Conc 32.8 g/dL (31.6-35.5); Mean Corpuscular Hemoglobin 29.5 pg (28.0-33.3); Mean Corpuscular Volume 90.2 fL (83.0-100.0); Platelet Count 270 K/mcL (140-400); Red Blood Count 5.11 M/mcL (4.19-5.50); Red Cell Distribution Width 14.4 % (11.5-14.5); White Blood Count 15.2 K/mcL (4.3-11.1)
[2019-07-13] MEDS ORDERED: traMADol 50 MG TABLET PO PRN ×2 (11:33→14:00)
[2019-07-13] MEDS ORDERED: *HR* OxyCODONE Immed Rel 5 MG TABLET PO PRN (11:33)
[2019-07-13] MEDS ORDERED: *HR* Promethazine 25 MG/ML VIAL IVP PRN (11:33)
[2019-07-13] MEDS ORDERED: Ketorolac 30 MG/ML VIAL IVP ONE ×2 (11:33→14:00)
[2019-07-13] MEDS ORDERED: Ringers Solution, Lactated 1,000 ML IVC SCH ×2 (11:45→14:00)
[2019-07-13] MEDS ORDERED: Isovue-300 50ML VIAL ONE (11:50)
[2019-07-13] MEDS ORDERED: *HR* PHENYLEPHRINE 1,000 MCG/10 ML SYRINGE IVP ONE ×2 (12:17→12:47)
[2019-07-13] MEDS ORDERED: *HR* FentaNYL (PF) 100 MCG/2 ML VIAL ONE (12:18)
[2019-07-13] MEDS ORDERED: Ondansetron 4 MG/2 ML VIAL ONE (12:18)
[2019-07-13] MEDS ORDERED: *HR* Propofol 200 MG/20 ML VIAL IVP ONE (12:18)
[2019-07-13] MEDS ORDERED: *HR* Succinylcholine 200 MG/10 ML VIAL IVP ONE (12:18)
[2019-07-13] MEDS ORDERED: *HR* Rocuronium Bromide 50 MG/5 ML VIAL ONE (12:18)
[2019-07-13] MEDS ORDERED: Lidocaine -MPF 4% 5 ML AMPUL ONE (12:18)
[2019-07-13] MEDS ORDERED: Dexamethasone 4 MG/ML VIAL ONE (12:18)
[2019-07-13] MEDS ORDERED: Lidocaine HCL 4 ML Topical Solution (Laryng-O-Jet Kit Sterile Pak) TP ONE (12:44)
[2019-07-13] MEDS ORDERED: *HR* Vasopressin 20 UNIT/ML VIAL ONE (12:55)
[2019-07-13] MEDS ORDERED: EPHEDrine 50 MG/ML VIAL ONE (12:59)
[2019-07-13] MEDS ORDERED: Ipratropium/Albuterol Neb 3 ML ONE (13:20)
[2019-07-13] MEDS ORDERED: Acetaminophen 325 MG TABLET PO PRN (14:00)
[2019-07-13] MEDS ORDERED: Ketorolac 30 MG/ML VIAL IVP PRN (14:00)
[2019-07-13] MEDS ORDERED: Ondansetron 4 MG/2 ML VIAL IVP PRN (14:00)
[2019-07-13 14:55] VITALS: BP 119/72
[2019-07-17 11:45] LABS: Calculi Mass 2 mg
== END 2019-07-13 16:25 | disposition home or self-care (01) ==
LOC: EMEROOARM 18:57 → 3ANU 18:57 → SUATTDRO 22:28 → 3ANU 23:18
PROVIDERS: ADMIT Internal Medicine; ATTEND Family Medicine

== ENCOUNTER 2019-11-24 10:33 | Observation (INO) ==
[2019-11-24] MEDS ORDERED: *HR* HYDROmorphone (PF) 1 MG/ML SYRINGE IVP ONE ×2 (11:12→12:16)
[2019-11-24] MEDS ORDERED: Ketorolac 15 MG/ML VIAL IVP ONE (11:12)
[2019-11-24] MEDS ORDERED: 0.9 % Sodium Chloride 1,000 ML IVC ONE (11:12)
[2019-11-24 11:23] LABS: Bilirubin,Urine Negative (Negative); Blood,Urine Large (Negative); Clarity,Urine Cloudy (Clear); Color,Urine Yellow (Yellow); Glucose,Urine (UA) Normal (Normal); Ketones,Urine Negative (Negative); Leukocyte Esterase,Urine Large (Negative); Nitrite,Urine Negative (Negative); PH,Urine 6.5 pH Units (5.0-8.0); Protein,Urine 100 mg/dL (Neg-Trace); Specific Gravity,Urine 1.023 (1.010-1.025); Urobilinogen,Urine Normal (Normal)
[2019-11-24] MEDS ORDERED: Ondansetron 4 MG/2 ML VIAL IVP ONE (11:25)
[2019-11-24 11:28] LABS: Bacteria,Urine None Seen per hpf (None-Few); Hyaline Casts,Urine None Seen per lpf (None-Few); RBC,Urine TNTC per hpf (0-3); Squamous Epithelial Cell,Urine None Seen per lpf (None-Few); WBC,Urine TNTC per hpf (0-3)
[2019-11-24 11:54] LABS: Basophils # 0.1 K/mcL (0.0-0.2); Eosinophils # 0.2 K/mcL (0.0-0.6); Eosinophils % 1.7 %; Hematocrit 49.3 % (37.5-50.1); Hemoglobin 16.1 g/dL (12.9-16.9); Immature Granulocytes % 1.3 % (0-4); Lymphocytes # 1.6 K/mcL (0.6-4.6); Lymphocytes % 18.8 %; Mean Corpuscular HGB Conc 32.7 g/dL (31.6-35.5); Mean Corpuscular Hemoglobin 29.5 pg (28.0-33.3); Mean Corpuscular Volume 90.3 fL (83.0-100.0); Mean Platelet Volume 9.3 fL (9.4-12.4); Monocytes # 0.9 K/mcL (0.0-1.3); Monocytes % 10.5 %; Neutrophils # 5.7 K/mcL (1.6-8.9); Platelet Count 329 K/mcL (140-400); Red Blood Count 5.46 M/mcL (4.19-5.50); Red Cell Distribution Width 13.9 % (11.5-14.5); Segmented Neutrophils % 66.7 %; White Blood Count 8.6 K/mcL (4.3-11.1)
[2019-11-24] MEDS ORDERED: Piperacillin/Tazobactam 3.375 GM in Water for inj. (sterile) 20 ML IVP ONE (12:46)
[2019-11-24] MEDS ORDERED: Azithromycin 500 MG in 0.9 % Sodium Chloride 250 ML IVPB ONE (12:47)
[2019-11-24 13:00] LABS: Alanine Aminotransferase 19 Units/L (7-52); Albumin 4.1 g/dL (3.5-5.7); Albumin/Globulin Ratio 1.4 (1.1-2.2); Alkaline Phosphatase 94 Units/L (34-104); Aspartate Amino Transferase 15 Units/L (13-39); BUN/Creatinine Ratio 17 (6-26); Bilirubin,Direct 0.1 mg/dL (0.0-0.2); Bilirubin,Indirect 0.3 mg/dL (0.0-1.0); Bilirubin,Total 0.4 mg/dL (0.3-1.0); Blood Urea Nitrogen 16 mg/dL (6-20); Calcium 10.3 mg/dL (8.6-10.3); Carbon Dioxide 26 mEq/L (23-29); Chloride 107 mEq/L (98-107); Glucose 113 mg/dL (70-105); Lipase 15 Units/L (11-82); Osmolality,Calculated 288 (280-300); Potassium 4.5 mEq/L (3.5-5.1); Sodium 138 mEq/L (136-145); Total Protein 7.1 g/dL (6.4-8.9); eGFR For African Americans > 60 (> 60); eGFR For Non-African Americans > 60 (> 60)
[2019-11-24] MEDS ORDERED: Naloxone 0.4 MG/ML INJ IVP PRN (13:57)
[2019-11-24] MEDS ORDERED: cefTRIAXone 1,000 MG in 0.9 % Sodium Chloride Mini Bag 100 ML IVPB SCH (14:00)
[2019-11-24] MEDS: Nicotine 21 MG PATCH.TD24 TD SCH (15:42)
[2019-11-24] MEDS: Ketorolac 30 MG/ML VIAL IVP PRN ×2 (15:42→21:44)
[2019-11-24] MEDS: *HR* HYDROcodone/Acet 10/325 mg TABLET PO PRN (17:30)
[2019-11-24] MEDS: cefTRIAXone 1,000 MG in Water for inj. (sterile) 10 ML IVP SCH (18:31)
[2019-11-24] MEDS: Ondansetron 4 MG/2 ML VIAL IVP PRN (21:50)
[2019-11-25] MEDS ORDERED: *HR* Promethazine 25 MG/ML VIAL IVP ONE (02:59)
[2019-11-25] MEDS: *HR* HYDROcodone/Acet 10/325 mg TABLET PO PRN ×2 (03:14→10:49)
[2019-11-25 05:16] LABS: Basophils # 0.1 K/mcL (0.0-0.2); Basophils % 0.8 %; Eosinophils # 0.2 K/mcL (0.0-0.6); Eosinophils % 2.1 %; Hematocrit 47.3 % (37.5-50.1); Hemoglobin 14.4 g/dL (12.9-16.9); Immature Granulocytes % 0.9 % (0-4); Lymphocytes # 1.6 K/mcL (0.6-4.6); Lymphocytes % 18.1 %; Mean Corpuscular HGB Conc 30.4 g/dL (31.6-35.5); Mean Corpuscular Hemoglobin 28.3 pg (28.0-33.3); Mean Corpuscular Volume 93.1 fL (83.0-100.0); Mean Platelet Volume 9.1 fL (9.4-12.4); Monocytes # 1.2 K/mcL (0.0-1.3); Monocytes % 14.1 %; Neutrophils # 5.5 K/mcL (1.6-8.9); Platelet Count 279 K/mcL (140-400); Red Blood Count 5.08 M/mcL (4.19-5.50); White Blood Count 8.6 K/mcL (4.3-11.1)
[2019-11-25 05:34] LABS: Calcium 10.3 mg/dL (8.6-10.3); Potassium 4.8 mEq/L (3.5-5.1)
[2019-11-25] MEDS: Nicotine 21 MG PATCH.TD24 TD SCH (09:42)
[2019-11-25] MEDS: 0.9 % Sodium Chloride 1,000 ML IVC SCH ×2 (09:42→21:31)
[2019-11-25] MEDS: cefTRIAXone 1,000 MG in Water for inj. (sterile) 10 ML IVP SCH (18:15)
[2019-11-25] MEDS: Ondansetron 4 MG/2 ML VIAL IVP PRN (22:52)
[2019-11-26 05:54] LABS: Basophils # 0.1 K/mcL (0.0-0.2); Basophils % 0.9 %; Eosinophils # 0.2 K/mcL (0.0-0.6); Eosinophils % 3.1 %; Hematocrit 44.9 % (37.5-50.1); Immature Granulocytes % 0.9 % (0-4); Lymphocytes # 1.8 K/mcL (0.6-4.6); Lymphocytes % 24.9 %; Mean Corpuscular HGB Conc 31.2 g/dL (31.6-35.5); Mean Corpuscular Hemoglobin 29.3 pg (28.0-33.3); Mean Corpuscular Volume 93.9 fL (83.0-100.0); Mean Platelet Volume 9.4 fL (9.4-12.4); Monocytes # 0.9 K/mcL (0.0-1.3); Monocytes % 12.2 %; Neutrophils # 4.3 K/mcL (1.6-8.9); Platelet Count 271 K/mcL (140-400); Red Blood Count 4.78 M/mcL (4.19-5.50); Red Cell Distribution Width 14.1 % (11.5-14.5); White Blood Count 7.4 K/mcL (4.3-11.1)
[2019-11-26 06:13] LABS: BUN/Creatinine Ratio 15 (6-26); Blood Urea Nitrogen 19 mg/dL (6-20); Calcium 9.8 mg/dL (8.6-10.3); Carbon Dioxide 28 mEq/L (23-29); Chloride 105 mEq/L (98-107); Glucose 100 mg/dL (70-105); Osmolality,Calculated 288 (280-300); Potassium 4.5 mEq/L (3.5-5.1); Sodium 138 mEq/L (136-145); eGFR For African Americans > 60 (> 60); eGFR For Non-African Americans > 60 (> 60)
[2019-11-26] MEDS: Nicotine 21 MG PATCH.TD24 TD SCH (08:50)
[2019-11-26] MEDS ORDERED: *HR* Propofol 200 MG/20 ML VIAL IVP ONE (10:38)
[2019-11-26] MEDS ORDERED: *HR* FentaNYL (PF) 100 MCG/2 ML VIAL ONE ×2 (10:38→12:21)
[2019-11-26] MEDS ORDERED: Lidocaine -MPF 2% 2 ML VIAL ONE (10:40)
[2019-11-26] MEDS ORDERED: Dexamethasone 4 MG/ML VIAL ONE (10:40)
[2019-11-26] MEDS ORDERED: Lidocaine -MPF 4% 5 ML AMPUL ONE (10:40)
[2019-11-26] MEDS ORDERED: Ondansetron 4 MG/2 ML VIAL ONE (10:40)
[2019-11-26] MEDS ORDERED: *HR* Succinylcholine 200 MG/10 ML VIAL IVP ONE (10:40)
[2019-11-26] MEDS ORDERED: Albuterol 2.5 MG/3 ML NEBULIZER IH ONE (10:59)
[2019-11-26] MEDS ORDERED: Albuterol 2.5 MG/3 ML NEBULIZER ONE (11:00)
[2019-11-26] MEDS ORDERED: Ringers Solution, Lactated 1,000 ML IVC ONE (11:06)
[2019-11-26] MEDS ORDERED: *HR* Midazolam HCl 2 MG/2 ML VIAL ONE (12:01)
[2019-11-26] MEDS ORDERED: Ondansetron 4 MG/2 ML VIAL IVP ONE (13:27)
[2019-11-26] MEDS ORDERED: *HR* HYDROmorphone PF 0.5 MG/0.5 ML SYRINGE IVP PRN (13:27)
[2019-11-26] MEDS ORDERED: *HR* Promethazine 25 MG/ML VIAL IVP PRN (13:27)
[2019-11-26] MEDS ORDERED: Naloxone 0.4 MG/ML INJ IVP PRN (14:48)
[2019-11-26] MEDS ORDERED: Ondansetron 4 MG/2 ML VIAL IVP PRN (14:48)
[2019-11-26 15:24] VITALS: BP 147/95
[2019-11-26] MEDS ORDERED: cefTRIAXone 1,000 MG in Water for inj. (sterile) 10 ML IVP SCH (19:00)
[2019-11-27] MEDS ORDERED: Nicotine 21 MG PATCH.TD24 TD SCH (09:00)
[2019-12-03 11:48] LABS: Calculi Mass 86 mg
== END 2019-11-26 16:01 | disposition home or self-care (01) ==
LOC: 3ANU 10:33 → EMEROOARM 10:33 → SUATTDRO 13:31 → 3ANU 14:32
PROVIDERS: ADMIT Family Medicine; ATTEND Internal Medicine

== ENCOUNTER 2020-01-30 13:37 | Observation (INO) ==
[2020-01-30] MEDS ORDERED: *HR* HYDROmorphone (PF) 1 MG/ML SYRINGE IVP ONE ×2 (13:43→14:12)
[2020-01-30] MEDS ORDERED: 0.9 % Sodium Chloride 1,000 ML IVC ONE (13:43)
[2020-01-30] MEDS ORDERED: Ondansetron 4 MG/2 ML VIAL IVP ONE (13:43)
[2020-01-30] MEDS ORDERED: Ketorolac 15 MG/ML VIAL IVP ONE (13:44)
[2020-01-30 14:06] LABS: Basophils # 0.1 K/mcL (0.0-0.2); Eosinophils # 0.2 K/mcL (0.0-0.6); Eosinophils % 2.1 %; Hemoglobin 15.4 g/dL (12.9-16.9); Immature Granulocytes % 0.9 % (0-4); Lymphocytes # 1.9 K/mcL (0.6-4.6); Lymphocytes % 21.8 %; Mean Corpuscular HGB Conc 31.4 g/dL (31.6-35.5); Mean Corpuscular Hemoglobin 28.6 pg (28.0-33.3); Mean Corpuscular Volume 90.9 fL (83.0-100.0); Mean Platelet Volume 9.3 fL (9.4-12.4); Monocytes # 0.8 K/mcL (0.0-1.3); Monocytes % 9.4 %; Neutrophils # 5.6 K/mcL (1.6-8.9); Platelet Count 294 K/mcL (140-400); Red Blood Count 5.39 M/mcL (4.19-5.50); Red Cell Distribution Width 14.4 % (11.5-14.5); Segmented Neutrophils % 64.8 %; White Blood Count 8.7 K/mcL (4.3-11.1)
[2020-01-30 14:18] LABS: Alanine Aminotransferase 20 Units/L (7-52); Albumin 4.4 g/dL (3.5-5.7); Albumin/Globulin Ratio 1.6 (1.1-2.2); Alkaline Phosphatase 111 Units/L (34-104); Aspartate Amino Transferase 17 Units/L (13-39); BUN/Creatinine Ratio 20 (6-26); Bilirubin,Total 0.5 mg/dL (0.3-1.0); Blood Urea Nitrogen 20 mg/dL (6-20); Calcium 10.5 mg/dL (8.6-10.3); Carbon Dioxide 25 mEq/L (23-29); Chloride 105 mEq/L (98-107); Globulin 2.8 g/dL (2.4-3.5); Glucose 106 mg/dL (70-105); Lipase 12 Units/L (11-82); Osmolality,Calculated 287 (280-300); Potassium 4.2 mEq/L (3.5-5.1); Sodium 137 mEq/L (136-145); Total Protein 7.2 g/dL (6.4-8.9); eGFR For African Americans > 60 (> 60); eGFR For Non-African Americans > 60 (> 60)
[2020-01-30] MEDS ORDERED: Morphine Sulfate Immed Rel 15 MG TABLET PO STA (14:38)
[2020-01-30] MEDS ORDERED: KETAMINE IVPB ONE (14:38)
[2020-01-30] MEDS ORDERED: SODIUM CHLORIDE 0.9% IVPB ONE (14:38)
[2020-01-30 14:39] LABS: Bilirubin,Urine Small (Negative); Blood,Urine Large (Negative); Clarity,Urine Cloudy (Clear); Color,Urine Yellow (Yellow); Glucose,Urine (UA) Normal (Normal); Ketones,Urine Negative (Negative); Leukocyte Esterase,Urine Large (Negative); Nitrite,Urine Negative (Negative); Protein,Urine 100 mg/dL (Neg-Trace); Urobilinogen,Urine Normal (Normal)
[2020-01-30] MEDS ORDERED: cefTRIAXone 2,000 MG in Water for inj. (sterile) 20 ML IVP ONE (14:40)
[2020-01-30 14:43] LABS: Hyaline Casts,Urine None Seen per lpf (None-Few); Squamous Epithelial Cell,Urine Few per lpf (None-Few); WBC,Urine TNTC per hpf (0-3)
[2020-01-30] MEDS ORDERED: Naloxone 0.4 MG/ML INJ IVP PRN (14:55)
[2020-01-30] MEDS ORDERED: Ondansetron 4 MG/2 ML VIAL IVP PRN (14:55)
[2020-01-30] MEDS ORDERED: *HR* HYDROcodone/Acet 5/325 mg TABLET PO PRN (14:55)
[2020-01-30] MEDS ORDERED: Acetaminophen 325 MG TABLET PO PRN (14:55)
[2020-01-30] MEDS ORDERED: *HR* HYDROmorphone (PF) 1 MG/ML SYRINGE IVP PRN (14:57)
[2020-01-30] MEDS ORDERED: *HR* HYDROcodone/Acet 10/325 mg TABLET PO PRN (14:57)
[2020-01-30 15:06] LABS: Bacteria,Urine Few per hpf (None-Few); Yeast,Urine Few per hpf (None Seen)
[2020-01-30 15:07] LABS: Calcium Oxalate Crystals,Urine Present
[2020-01-30] MEDS: Nicotine 21 MG PATCH.TD24 TD SCH (16:04)
[2020-01-30] MEDS: Ringers Solution, Lactated 1,000 ML IVC SCH (16:06)
[2020-01-31] MEDS: Ringers Solution, Lactated 1,000 ML IVC SCH (02:29)
[2020-01-31 07:51] LABS: Basophils # 0.1 K/mcL (0.0-0.2); Basophils % 0.8 %; Eosinophils # 0.2 K/mcL (0.0-0.6); Eosinophils % 2.7 %; Hematocrit 46.1 % (37.5-50.1); Hemoglobin 14.4 g/dL (12.9-16.9); Immature Granulocytes % 0.8 % (0-4); Lymphocytes # 1.2 K/mcL (0.6-4.6); Lymphocytes % 19.3 %; Mean Corpuscular HGB Conc 31.2 g/dL (31.6-35.5); Mean Corpuscular Hemoglobin 28.7 pg (28.0-33.3); Mean Platelet Volume 9.4 fL (9.4-12.4); Monocytes # 0.7 K/mcL (0.0-1.3); Monocytes % 11.3 %; Neutrophils # 4.1 K/mcL (1.6-8.9); Platelet Count 262 K/mcL (140-400); Red Blood Count 5.01 M/mcL (4.19-5.50); Red Cell Distribution Width 14.6 % (11.5-14.5); Segmented Neutrophils % 65.1 %; White Blood Count 6.3 K/mcL (4.3-11.1)
[2020-01-31] MEDS ORDERED: *HR* Propofol 200 MG/20 ML VIAL IVP ONE (07:58)
[2020-01-31] MEDS ORDERED: Lidocaine -MPF 2% 2 ML VIAL ONE (07:58)
[2020-01-31] MEDS ORDERED: *HR* FentaNYL (PF) 100 MCG/2 ML VIAL ONE (07:58)
[2020-01-31] MEDS ORDERED: *HR* Midazolam HCl 2 MG/2 ML VIAL ONE (07:58)
[2020-01-31] MEDS ORDERED: *HR* Succinylcholine 200 MG/10 ML VIAL IVP ONE (08:01)
[2020-01-31 08:09] LABS: BUN/Creatinine Ratio 20 (6-26); Blood Urea Nitrogen 17 mg/dL (6-20); Calcium 9.9 mg/dL (8.6-10.3); Carbon Dioxide 27 mEq/L (23-29); Chloride 105 mEq/L (98-107); Glucose 98 mg/dL (70-105); Osmolality,Calculated 288 (280-300); Potassium 4.1 mEq/L (3.5-5.1); Sodium 138 mEq/L (136-145); eGFR For African Americans > 60 (> 60); eGFR For Non-African Americans > 60 (> 60)
[2020-01-31] MEDS ORDERED: Ondansetron 4 MG/2 ML VIAL IVP PRN ×2 (08:38→10:17)
[2020-01-31] MEDS ORDERED: *HR* Promethazine 25 MG/ML VIAL IVP PRN (08:38)
[2020-01-31] MEDS ORDERED: *HR* FentaNYL (PF) 100 MCG/2 ML VIAL IVP PRN (08:38)
[2020-01-31] MEDS ORDERED: *HR* Labetalol 20 MG/4 ML SYRINGE IVP PRN (08:38)
[2020-01-31] MEDS ORDERED: *HR* HYDROcodone/Acet 10/325 mg TABLET PO PRN ×2 (08:41→10:17)
[2020-01-31] MEDS ORDERED: Dexamethasone 4 MG/ML VIAL ONE (08:57)
[2020-01-31] MEDS ORDERED: cefTRIAXone 2,000 MG in Water for inj. (sterile) 20 ML IVP SCH ×2 (09:00→15:00)
[2020-01-31] MEDS ORDERED: Acetaminophen 325 MG TABLET PO PRN (10:17)
[2020-01-31] MEDS ORDERED: Ringers Solution, Lactated 1,000 ML IVC SCH (10:17)
[2020-01-31] MEDS ORDERED: Naloxone 0.4 MG/ML INJ IVP PRN (10:17)
[2020-01-31] MEDS ORDERED: *HR* HYDROmorphone (PF) 1 MG/ML SYRINGE IVP PRN (10:17)
[2020-01-31] MEDS ORDERED: *HR* HYDROcodone/Acet 5/325 mg TABLET PO PRN (10:17)
[2020-01-31] MEDS: Nicotine 21 MG PATCH.TD24 TD SCH (10:56)
[2020-01-31] MEDS ORDERED: Nicotine 21 MG PATCH.TD24 TD SCH (11:00)
[2020-01-31 13:22] VITALS: BP 144/90
[2020-02-01] MEDS ORDERED: cefTRIAXone 2,000 MG in Water for inj. (sterile) 20 ML IVP SCH (09:00)
[2020-02-01] MEDS ORDERED: Nicotine 21 MG PATCH.TD24 TD SCH (09:00)
== END 2020-01-31 13:26 | disposition home or self-care (01) ==
LOC: EMEROOARM 13:37 → 3ANU 13:37
PROVIDERS: ADMIT Internal Medicine; ATTEND Internal Medicine